=== PATIENT | male | born 1940 | race Caucasian/White ===

== ENCOUNTER 2022-01-05 01:13 | Day surgery (SDC) | payer MEDICARE, SELFPAY ==
[2021-12-23 13:45] VITALS: BMI 36.5
--- NOTE | 2022-01-05 08:54 | PM.HPGS ---
History of Present Illness History of Present Illness Consent: Risks, benefits, and alternatives have been discussed and questions answered. Patient agrees to proceed with procedure. Chief complaint: Hemorrhoids Narrative: Galdino Duggan Sr. is a 81 year old male here for symptomatic hemorrhoids, only used preparation h Review of Systems Constitutional: Constitutional: Denies headache(s) and Denies weakness Eyes: Eyes: Denies blurry vision ENT: Reports Normal hearing present, Denies headache(s) and Denies neck pain Cardiovascular: Cardiovascular: Denies chest pain and Denies dyspnea Respiratory: Respiratory: Denies dyspnea Gastrointestinal: Gastrointestinal: Reports no additional gastrointestinal complaints Genitourinary: Genitourinary: Denies dysuria Musculoskeletal: Musculoskeletal: Denies neck pain Integumentary/Breasts: Skin/Breast: Denies dry skin Neurologic: Reports Normal hearing present, Denies headache(s) and Denies weakness Psychiatric: Psychiatric: Denies anxiety Endocrine: Endocrine: Denies change in body appearance Hematologic/Lymphatic: Hematologic/Lymphatic: Denies easy bleeding Allergic/Immunologic: Allergic/Immunologic: Denies urticaria [facility] Past Medical History Medical History (Updated 01/05/22 @ 08:54 by Hector Garnica MD) GERD (gastroesophageal reflux disease) Hemorrhoid Obesity (BMI 30-39.9) Family History Family History Mother Hypertension Cerebrovascular accident Social History Social History (Updated 12/01/21 @ 08:37 by Patsy Gan CMA) Smoking status: Former smoker Alcohol intake: never Substance use: never Living arrangements: alone Spiritual care concerns: No Meds Home Medications and Allergies Home Medications Medication Instructions Recorded Confirmed Type amlodipine 5 mg tablet 5 mg PO DAILY 10/21/21 12/23/21 History escitalopram oxalate 10 mg tablet 10 mg PO DAILY 10/21/21 12/23/21 History esomeprazole magnesium 40 mg 40 mg PO DAILY 10/21/21 12/23/21 History capsule,delayed release metoprolol succinate 25 mg 25 mg PO DAILY 10/21/21 12/23/21 History tablet,extended release 24 hr pravastatin 10 mg tablet 10 mg PO DAILY 10/21/21 12/23/21 History Allergies Allergy/AdvReac Type Severity Reaction Status Date / Time No Known Allergies Allergy Verified 01/05/22 08:41 Exam Const: General: comfortable and no acute distress HENMT: General nose exam: Normal nares present Eyes: General: appearance normal, both eyes and all related structures Neck: Neck: no JVD Resp: Auscultation: clear to auscultation bilaterally Cardio: Rate: regular rate Rhythm: regular rhythm GI: Inspection: non-distended GI Palp: Yes Soft to palpation Skin: General skin exam: normal color Neuro: General: gait normal Speech: normal speech Extrem: General: normal to inspection Psych: Mental Status: mental status grossly normal Assessment and Plan Assessment and plan (1) Hemorrhoid: Code(s): K64.9 - Unspecified hemorrhoids Status: Acute Assessment and Plan: irc internal hemorrhoids
--- NOTE | 2022-01-05 08:57 | W.PM.PROC2 ---
Procedure Note - Detailed Date of Procedure 01/05/22 Pre-op Diagnosis Hemorrhoids Post-op Diagnosis Same Procedure Performed irc of internal hemorrhoids Surgeon Hector Garnica MD Description of Procedure I introduced anoscope and noted grade II internal hemorrhoids at 6 0'clock, then advanced IRC probe and hemorrhoids treated at 1.5 seconds x6, no complications
== END 2022-01-05 09:05 | disposition home or self-care (01) ==
PROVIDERS: PCP Internal Medicine; Visit Provider Internal Medicine Gastroenterology
PROC: (CPT 46930; principal; 2022-01-05 09:00)
DX: K64.8 Other hemorrhoids (principal); K21.9 Gastro-esophageal reflux disease without esophagitis; Z87.891 Personal history of nicotine dependence; K64.9 Unspecified hemorrhoids
CPT/HCPCS: 46930

== ENCOUNTER 2022-02-25 14:09 | Outpatient (CLI) | payer MEDICARE, BC, SELFPAY ==
--- NOTE | ~2022-02-25 | XR_ITS ---
EXAMINATION: XR hip LT min 2V INDICATION: Left hip pain TECHNIQUE: Two views of left hip are obtained. COMPARISON: None available FINDINGS: Bone alignment is normal. There is no fracture. There is mild osteoarthritis of the hip. Th e soft tissues are unremarkable. IMPRESSION: 1. Mild osteoarthritis of the hip. Reviewed, dictated and finalized at location F.
[2022-02-25 14:26] LABS: Basophils Absolute Auto 0.04 K/mm3 (0.00-0.10); Basophils Percent Auto 0.6 % (0.0-1.0); Eosinophils Absolute Auto 0.17 K/mm3 (0.02-0.50); Eosinophils Percent Auto 2.6 % (1.0-6.0); Hematocrit 49.9 % (37.0-46.0); Hemoglobin 16.3 g/dL (12.4-15.3); Immature Granulocyte Absolute 0.05 K/mm3 (0.00-0.00); Immature Granulocyte Percent A 0.8 % (0.0-0.0); Lymphocytes Absolute Auto 2.26 K/mm3 (1.10-4.50); Mean Corpuscular HGB Conc 32.7 g/dL (32.0-36.0); Mean Corpuscular Hemoglobin 29.8 pg (27.0-31.0); Mean Corpuscular Volume 91.2 fL (78.0-102.0); Mean Platelet Volume 9.2 fl (8.7-11.0); Monocytes Absolute Auto 0.64 K/mm3 (0.10-0.90); Monocytes Percent Auto 9.6 % (2.0-11.0); Neutrophils Absolute Auto 3.5 K/mm3 (1.7-7.2); Neutrophils Percent Auto 52.4 % (50.0-70.0); Platelet Count Result 212 K/mm3 (150-420); Red Blood Count 5.47 M/mm3 (4.70-6.10); White Blood Count 6.7 K/mm3 (4.8-10.8)
[2022-02-25 15:11] LABS: Alanine Aminotransferase 42 U/L (16-63); Albumin Level 3.7 g/dL (3.4-5.0); Alkaline Phosphatase 93 U/L (46-116); Anion Gap 6 mmol/L (8-16); Aspartate Amino Transferase 32 U/L (15-37); Bilirubin,Total 0.4 mg/dL (0.00-1.00); Blood Urea Nitrogen 13 mg/dL (7-18); CRP < 0.5 mg/dL (0.0-0.9); Calcium 8.7 mg/dL (8.5-10.1); Carbon Dioxide 30 mmol/L (21-32); Chloride 106 mmol/L (98-108); Estimated Glomerular Filt Rate 52; Glucose 96 mg/dL (70-99); Osmolality Calculated 294 mOsm/kg (285-295); Potassium 3.9 mmol/L (3.5-5.1); Sodium 142 mmol/L (136-145); Total Protein 7.3 g/dL (6.4-8.2); Uric Acid 5.8 mg/dL (3.5-7.2)
== END 2022-02-25 14:10 | disposition home or self-care (01) ==
LOC: CHSLAB 14:13
PROVIDERS: PCP Internal Medicine; Visit Provider Nurse Practitioner Family
DX: M25.552 Pain in left hip (principal); N18.9 Chronic kidney disease, unspecified
CPT/HCPCS: 36415; 73502; 80053; 84550; 85025; 86140

== ENCOUNTER 2022-03-08 09:33 | Outpatient (CLI) | payer MEDICARE, BC, SELFPAY ==
--- NOTE | ~2022-03-08 | CT_ITS ---
EXAMINATION: CT abdomen pelvis wo con DATE: 03/08/2022 09:57 INDICATION: Flank pain and low back pain TECHNIQUE: Computed tomography (CT) of the abdomen and pelvis was performed without intravenous contr ast. The dose-length product was 700.77 mGy-cm. Automated exposure control and iterative reconstructi on technique were employed. COMPARISON: None. FINDINGS: Lung bases are unremarkable. Heart size normal. There are multiple bilateral renal cysts. T here is an 8 cm right renal cyst. There are gallstones. No significant pleural or pericardial effusio n. Nonobstructive bowel pattern. The spleen, pancreas, adrenal glands are unremarkable. Mild atheroscler osis. No evidence for aneurysm. No lymphadenopathy. Severe lumbar spondylosis. Moderate osteoarthriti s of the hips. No free air or free fluid. There is a fat-containing right inguinal hernia. IMPRESSION: 1. No acute abdominal abnormality. 2: Cholelithiasis. 3: Bilateral renal cysts. Reviewed, dictated and finalized at location B.
== END 2022-03-08 09:34 | disposition home or self-care (01) ==
PROVIDERS: PCP Internal Medicine; Visit Provider Internal Medicine
DX: R10.9 Unspecified abdominal pain (principal); M54.50 Low back pain, unspecified
CPT/HCPCS: 74176

== ENCOUNTER 2022-03-09 14:29 | Outpatient (RCR) | payer MEDICARE, SELFPAY ==
--- NOTE | 2022-03-09 14:50 | PTOPEVAL1 ---
Assessment and note entered by JT File, PT Evaluation Information Assessment Status Evaluation Diagnosis acute L flank pain, sprained paraspinal mm Onset 02/22/22 Subjective Information patient reports he feels like he has a pinched nerve in his L side. he points to the pain in his L flank. he reports the pain is not all the time, and is not always severe, but at times is sharp when twisting. he reports at times bending, leaning, turning, and twisting cause him pain. he reports he has no symptoms down the legs. he reports the pain can increase with coughing sometimes. Reported Pain Level Pain Score 0: Self Report Assessment PT Clinical Summary mr. rainey is a 81 yo man who presents to skilled PT services for evaluation and treatment of L flank pain. he presents this date with signs and symptoms consistent with illiacus/illopsoas/ quadratus mm strain. he would do well to attend and participate in skilled PT to improve his objective/functional deficits and progress towards a return to his prior level quality of life. Plan of Care Interventions Electrical Stimulation,Gait Training,Manual Therapy,Neuro Re-education,Therapeutic Activities, Therapeutic Exercise PT Services Indicated Yes Treatment Frequency and 3x weekly for 12 visits Duration These treatments will address the objective and functional deficits as defined above. The patient will be advanced safely and appropriately in order for the patient to progress towards his/her prior level of function. Additional exercises will be introduced and as well as a comprehensive home exercise program upon discharge, if needed, ?to ensure carryover of functional gains achieved in the clinic. This treatment plan has been reviewed and agreement upon by the patient.
--- NOTE | 2022-03-26 09:20 | PTOPPROG ---
Assessment and note entered by JT File, PT Evaluation Information Assessment Status Progress Diagnosis acute L flank pain, sprained paraspinal mm Onset 02/22/22 Subjective Information patient reports he feels great this date. he reports he was a little sore and stiff yesterday after sitting on the ground and fishing. he reports he feels good this date. Assessment PT Clinical Summary mr. rainey presents to skilled PT services for his 9th skilled therapy visit. he presents this date with no pain in the lower back/L flank. he continues to present with core weakness and bialteral LE mm tightness. he has met nearly 50% of goals for skilled PT thus far. he would do well to continue therapy for his remaining 3 visits to improve his remaining objective/functional deficits and achieve all goals for skilled PT and return to prior level functional activities without limitations. Plan of Care Interventions Gait Training,Manual Therapy,Neuro Re-education, Therapeutic Activities,Therapeutic Exercise PT Services Indicated Yes Treatment Frequency and continue 3x weekly for 3 more visits Duration These treatments will address the objective and functional deficits as defined above. The patient will be advanced safely and appropriately in order for the patient to progress towards his/her prior level of function. Additional exercises will be introduced and as well as a comprehensive home exercise program upon discharge, if needed, ?to ensure carryover of functional gains achieved in the clinic. This treatment plan has been reviewed and agreement upon by the patient.
--- NOTE | 2022-04-02 07:39 | PTOPDC ---
Assessment and note entered by JT File, PT Evaluation Information Assessment Status Discharge Diagnosis acute L flank pain, sprained paraspinal mm Onset 02/22/22 Subjective Information patient reports he feels Great overall. he reports the therapy took away all the pain he came to therapy with. he reports he is still stiff in the mornings, but does loosen up with his exercises at home. Reported Pain Level Pain Score 0: Self Report Assessment PT Clinical Summary mr. rainey presents to skilled PT services for his 12th skilled therapy visit. he presents this date with no pain, improved strength, improved rom , and having met over 75% of goals. as of this date, he will DC skilled PT and continue with HEP independent at home. he presents with no deficits per the oswestry. Plan of Care Treatment Frequency and DC to independent HEP Duration
== END 2022-04-02 08:28 | disposition home or self-care (01) ==
LOC: CHSPT 14:29
PROVIDERS: PCP Internal Medicine; Visit Provider Internal Medicine
DX: R10.9 Unspecified abdominal pain (principal)
CPT/HCPCS: 97014; 97110; 97112; 97140; 97161; 97530; G0283

== ENCOUNTER 2024-02-16 04:50 | Day surgery (SDC) | payer MEDICARE, SELFPAY ==
[2024-02-07 09:36] VITALS: BMI 36.8
--- NOTE | 2024-02-16 13:27 | PM.HPGS ---
History of Present Illness History of Present Illness Consent: Risks, benefits, and alternatives have been discussed and questions answered. Patient agrees to proceed with procedure. Chief complaint: Hemorrhoids Narrative: Galdino Duggan Sr. is a 83 year old male here for [facility], last one 2021 helped but recently again with symptoms. Review of Systems Review of Systems: All systems reviewed & are unremarkable except as noted in HPI and below PMFSH Past Medical History Medical History GERD (gastroesophageal reflux disease) Hemorrhoid Obesity (BMI 30-39.9) Family History Family History Mother Hypertension Cerebrovascular accident Social History Social History Smoking status: Former smoker Smokeless tobacco user: chewing tobacco Alcohol intake: never Substance use: never Living arrangements: alone Spiritual care concerns: No Meds Home Medications and Allergies Home Medications Medication Instructions Recorded Confirmed Type amlodipine 5 mg tablet 5 mg PO DAILY 10/21/21 02/16/24 History escitalopram oxalate 10 mg tablet 10 mg PO DAILY 10/21/21 02/16/24 History esomeprazole magnesium 40 mg 40 mg PO DAILY 10/21/21 02/16/24 History capsule,delayed release (Nexium) metoprolol succinate 25 mg 25 mg PO DAILY 10/21/21 02/16/24 History tablet,extended release 24 hr pravastatin 10 mg tablet 10 mg PO DAILY 10/21/21 02/16/24 History hydrocortisone 2.5 % topical cream 1 applic RECTAL BID #30 grams 01/31/24 02/16/24 Rx with perineal applicator (Anusol-HC) Allergies Allergy/AdvReac Type Severity Reaction Status Date / Time No Known Allergies Allergy Verified 02/16/24 13:03 Exam Const: General: comfortable and no acute distress HENMT: Face/Nose/Sinus: Normal nares present Eyes: General: appearance normal, both eyes and all related structures Neck: Neck: no JVD Resp: Auscultation: clear to auscultation bilaterally Cardio: Rate: regular rate Rhythm: regular rhythm GI: Inspection: non-distended GI Palp: Yes Soft to palpation Skin: General skin exam: normal color Neuro: General: gait normal Speech: normal speech Extrem: General: normal to inspection Psych: Mental Status: mental status grossly normal Assessment and Plan Assessment and plan (1) Internal hemorrhoids: Code(s): K64.8 - Other hemorrhoids Status: Acute Assessment and Plan: irc
--- NOTE | 2024-02-16 14:11 | W.PM.PROC2 ---
Procedure Note - Detailed Date of Procedure 02/16/24 Pre-op Diagnosis Hemorrhoids Post-op Diagnosis Same Procedure Performed irc of internal hemorrhoids Surgeon Hector Garnica MD Anesthesia None Findings small size internal hemorrhoids Description of Procedure noted small size hemorrhoids, no bleeding, no lesions when used anoscope. Then introduced IRC probe and hemorrhoids treated at 1.5 seconds x6
== END 2024-02-16 13:32 | disposition home or self-care (01) ==
PROVIDERS: PCP Internal Medicine; Visit Provider Internal Medicine Gastroenterology
PROC: (CPT 46930; principal; 2024-02-16 13:30)
DX: K64.8 Other hemorrhoids (principal); K21.9 Gastro-esophageal reflux disease without esophagitis; F17.220 Nicotine dependence, chewing tobacco, uncomplicated; Z82.49 Family history of ischemic heart disease and other diseases of the circulatory system
CPT/HCPCS: 46930

== ENCOUNTER 2024-06-15 09:14 | Outpatient (CLI) | payer MEDICARE, SELFPAY ==
--- NOTE | ~2024-06-15 | US_ITS ---
US renal BI 06/15/2024 09:46 Procedure: Realtime transabdominal ultrasound of the kidneys and bladder. Indication: Kidney disease stage II Comparison: CT dated 03/08/2022 Findings: There are multiple bilateral renal cysts, largest in the right kidney measuring 9 cm in lar gest on the left measuring 3.8 cm. No solid masses or hydronephrosis. Right kidney measures 10.8 cm. Left kidney measures 12.1 cm. Bladder within normal limits. Impression: 1: Bilateral renal cysts. Reviewed, dictated and finalized at location A. FRAMER Impression: 1: Bilateral renal cysts.
--- OUTSIDE RECORDS SUMMARY | 2024-06-15 09:32 | XMS_ITS | Continuity of Care Document ---
Author Organization [facility] Address [address] [place] [address] Phone Care Team Providers Care Press Cutter Name Role Phone Jose A OD, Lela [...] Diagnoses Date Provider Providers Copied on Encounter [facility], [address], [place], [place], [id number], [place] tel:[phone] [address] [place] No Information Jose A OD Lela. [address], [place], [place], [address], [place]. tel:[phone] Family History Family Member Type Diagnosis Age At Onset No Information Payers Payer name Insurance type Covered libertarian ID Authoriza tion(s) No Information Social History Type Description Quantity Date Captured Comments Alcohol Use Details No Caffeine Use Details 2 cups per day Tobacco Use Status No Information Smoking Status No Information Sex Male Chief Complaint And Reason For Visit No Information Reason For Referral Reason For Referral No Information Plan Of Treatment Date Type Action Status Appointment Galdino Duggan BOOKED History Of Present Illness Encounter Date Complaint History Of Prese nt Illness No Information Functional Status Date Functional Assessmen t No Information Instructions Date Instruction Additional Infor mation No Information Assessments Type Assessment Date No Information Patient Care Teams Name Effective Dates (start - stop) Status Members No Information
--- OUTSIDE RECORDS SUMMARY | 2024-06-15 09:32 | XMS_ITS | Clinical Summary ---
Author Organization [facility] Address [address] [place] [address]. [place], [place] [address] [place] [address] Care Team Providers Care Safe And Vault Service Mechanic Name Role Phone Jake Pond MD Primary Care Provider [phone] Teo Reeder MD Unavailable Unavailab le Allergies No known active allergies Medications esomeprazole (NEXIUM) 40 MG packet Take 40 mg by mouth every morning before breakfast. Active escitalopram 10 MG tablet Take 10 mg by mouth daily. Active amlodipine 5 MG tablet Take 5 mg by mouth daily. Active metoprolol succinate 50 MG 24 hr tablet Take 25 mg by mouth. Active aspirin EC (ASPIRIN) 81 MG EC tablet Take 81 mg by mouth daily. Active Active Problems Problem Noted Date Diagnosed Date Essential (primary) hypertension 09/08/2016 Hyperlipidemia, mixed 09/08/2016 Bilateral carotid artery disease 09/08/2016 Resolved Problems Problem Noted Date Diagnosed Date Resolved Date Shortness of breath 09/08/2016 09/09/19 17 Social History Tobacco Use Types Packs/Day Years Used Date Smoking Tobacco: Former Sex and Gender Information Value Date Recorded Sex Assigned at Not on file Legal Sex Male 1:13 PM CDT Gender Identity Not on file Sexual Orientation Not on file Occupation Industry Job Start Date Job End Date retired Not on file Not on file Not on file Last Filed Vital Signs Vital Sign Reading Time Taken Comments Blood Pressure 134/88 09/09/2016 10:29 AM CDT Pulse 66 09/09/2016 10:29 AM CDT Temperature - - Respiratory Rate 16 09/09/2016 10:29 AM CDT Oxygen Saturation 98% 09/09/2016 10:29 AM CDT Inhaled Oxygen Concentration - - Weight 118.8 kg (262 lb) 09/09/2016 10:29 AM CDT Height 172.7 cm (5' 8 ) 09/09/2016 10:29 AM CDT Body Mass Index 39.84 09/09/2016 10:29 AM CDT Plan of Treatment Health Maintenance Due Date Last Done Comments DTaP, Tdap and Td Vaccines ( 1 - Tdap) 1961 Zoster Vaccines (1 of 2) 1992 Annual Medicare Wellness Visit 11/17/2007 Pneumococcal Vaccine: 65+ Ye ars (1 of 1 - PCV) 11/17/2007 RSV Immunization or 60+ Years (1 - 1-dose 75+ series) 2017 COVID-19 Vaccine (1 - 2023-2 5 season) 2024 Influenza Adult (#1) 2024 Meningococcal B Vaccine Aged Out No l onger eligible based on patient's age to complete this topic Meningococcal Vaccine Aged Out No pete imani eligible based on patient's age to complete this topic RSV Immunizations Under 20 Months Aged Out No longer eligible based on patient's age to complete this topic Insurance MEDICARE Care Teams Safe And Vault Service Mechanic Relationship Specialty Start Date End Date Jake Pond MD [address] [place] [address] PCP - General INTERNAL MEDICINE 08/17/16 Teo Reeder MD [address] [place] [address] CARDIOVASCULAR DISEASE 08/17/16
--- OUTSIDE RECORDS SUMMARY | 2024-06-15 09:32 | XMS_ITS | Encounter Summary ---
Author Organization [facility] Address [address] [place] [address]. [place], [place] [id number] [place] [address] Care Team Providers Care Plate Glass Installer Name Role Phone Jake Pond MD Primary Care Provider [phone] Teo Reeder MD Unavailable Unavailab le Encounter Details Date Type Department Care Team (Late st Contact Info) Description 09/07/2016 Abstract [facility] [address] [place] [address] Teo Reeder MD Social History Tobacco Use Types Packs/Day Years Used Date Smoking Tobacco: Former Sex and Gender Information Value Date Recorded Sex Assigned at Not on file Legal Sex Male 1:13 PM CDT Gender Identity Not on file Sexual Orientation Not on file Occupation Industry Job Start Date Job End Date retired Not on file Not on file Not on file documented as of this encounter Plan of Treatment Not on file documented as of this encounter Visit Diagnoses Not on filedocumented in this encounter Care Teams Plate Glass Installer Relationship Specialty Start Date End Date Jake Pond MD [address] [place] [address] PCP - General INTERNAL MEDICINE 08/17/16 Teo Reeder MD [address] [place] [address] CARDIOVASCULAR DISEASE 08/17/16 documented as of this encounter
== END 2024-06-15 09:15 | disposition home or self-care (01) ==
LOC: CHSIMG 09:15
PROVIDERS: PCP Internal Medicine; Visit Provider Internal Medicine
DX: N18.2 Chronic kidney disease, stage 2 (mild) (principal); N28.1 Cyst of kidney, acquired
CPT/HCPCS: 76775

== ENCOUNTER 2024-08-10 09:10 | Emergency (ER) | payer MEDICARE, SELFPAY ==
[2024-08-10] VITALS (34 sets, daily range): BP systolic 92–158; BP diastolic 56–77; PULSE 79–95; RESP 12–26; TEMP 36.6; O2SAT 90–100
--- NOTE | ~2024-08-10 | XR_ITS ---
EXAMINATION: XR chest 1V portable DATE: 08/10/2024 09:43 INDICATION: Left lower extremity weakness. TECHNIQUE: A single frontal view of the chest was obtained. COMPARISON: Chest 2 views 09/05/2006, CT abdomen and pelvis 03/08/2022 FINDINGS: There is no pneumonia, pleural effusion, or pneumothorax. The heart size is normal. IMPRESSION: 1. No acute cardiopulmonary disease. Reviewed, dictated and finalized at location A.
--- NOTE | ~2024-08-10 | CT_ITS ---
EXAMINATION: CT brain wo con DATE: 08/10/2024 09:42 INDICATION: Left lower extremity weakness. TECHNIQUE: Computed tomography (CT) of the head was performed without intravenous contrast. The mA wa s adjusted according to patient size. Iterative reconstruction technique was employed. The dose-lengt h product was 605.33 mGy-cm. COMPARISON: None FINDINGS: There are scattered areas of low attenuation in the cerebral white matter, which is within normal limits for the patient's age. There is no intracranial hemorrhage, acute infarction, or abnorm al intracranial mass lesion. The ventricles are normal in size. The paranasal sinuses are clear. Ther e are likely changes of ocular lens replacement surgeries. The mastoid air cells are normal. IMPRESSION: 1. Normal aging brain. Reviewed, dictated and finalized at location A. IMPRESSION: 1. Normal aging brain.
--- NOTE | ~2024-08-10 | CT_ITS ---
EXAMINATION: CTA BRAIN/CAROTID DATE: 08/10/2024 11:23 INDICATION: Stroke with left lower limb weakness TECHNIQUE: Computed tomographic angiography (CTA) of the head and neck was performed with 100 mL Omni paque-350 intravenous contrast. Multiplanar reconstructions and maximum intensity projection 3D-recon structions of the carotid arteries and of the intracranial arteries were created by the technologist on a separate workstation. Automated exposure control and iterative reconstruction technique were emp loyed.The dose-length product was 1117.04 mGy-cm. COMPARISON: Head CT dated 08/10/2024 FINDINGS: Carotid arteries: Visualized aortic arch and great vessels arising from the arch are normal in caliber with no hemodyna mically significant stenosis or dissection. Cervical portion of the bilateral vertebral arteries are codominant also without hematoma significant stenosis or dissection. There is no evident atherosclero tic plaque with 0% stenosis of the right carotid bulb relative to normal distal artery lumen diameter (NASCET criteria). There is normal atherosclerotic plaque also with 0% stenosis of the left carotid bulb relative to normal distal artery lumen diameter. Cervical soft tissues are unremarkable. This la st apices of lungs are clear. Moderate lower cervical spondylosis. Intracranial arteries Bilateral vertebral arteries are codominant. Atherosclerosis without hemodynamically significant sten osis on the left vertebral artery and at the bilateral carotid siphons. There is no hemodynamically s ignificant stenosis in the vertebral, basilar and internal carotid arteries. There are no aneurysms i dentified. Both A1 and P1 segments are patent. There is also a patent intercommunicating artery. Cer ebral arterial arborization appears symmetric. No abnormally enhancing brain lesions. IMPRESSION: 1. 0% stenosis of the right and left carotid bulbs relative to normal distal artery lumen diameter (N ASCET criteria). 2. Atherosclerotic plaque without hemodynamically significant stenosis at the left vertebral artery a nd bilateral carotid siphons. No hematoma significant stenosis, aneurysm or thrombosis. Reviewed, dictated and finalized at location B. IMPRESSION: 1. 0% stenosis of the right and left carotid bulbs relative to normal distal ar wes lumen diameter (NASCET criteria). 2. Atherosclerotic plaque without hemodynamically significant stenosis at the l eft vertebral artery and bilateral carotid siphons. No hematoma significant johnnie nosis, aneurysm or thrombosis.
--- NOTE | 2024-08-10 09:15 | ED.LOWEXIN ---
HPI - Extremity Injury (Lower) General Chief Complaint: Weakness Stated Complaint: left leg weakness Time Seen by Provider: 08/10/24 09:15 Source: patient Mode of arrival: ambulatory Limitations: no limitations History of Present Illness HPI Narrative: patient is an 83-year-old male with left lower extremity weakness starting at 7:00 a.m. his last known well. He went to take a bath this morning it was normal and then he got out of the bath at 7:00 a.m. and he was having left lower extremity weakness. He is unable to take full steps without his leg giving out on him at that time. He is still having the same complaint. No other neurological changes. We are now at 2-1/2 hours and we will get the CT scan of the head stat. NIH score is 1. Fast exam is negative. GCS is 15. No injury involved. Patient took aspirin 81 mg this morning. complaint: other ( Left lower extremity weakness) Onset (ago): hour(s) ( 2-1/2 hours (last known well 7:00 a.m.)) Type of Injury: other ( no injury) Place: home Severity: moderate Severity scale (1-10): 4 Relieving factors: nothing Exacerbating factors: nothing Context: fall ( patient fell multiple times this morning due to the weakness of left lower extremity) Associated symptoms: other ( no numbness or tingling of the left lower extremity; no lower back pain; no injuries) Other symptoms: none Treatments prior to arrival: other ( patient takes aspirin daily) Related Data Home Medications ?Medication ?Instructions ?Recorded ?Confirmed ?Last Taken ?Type amlodipine 5 mg tablet 5 mg PO DAILY 10/21/21 02/16/24 02/16/24 08:00 History escitalopram oxalate 10 mg tablet 10 mg PO DAILY 10/21/21 02/16/24 02/16/24 08:00 History esomeprazole magnesium 40 mg 40 mg PO DAILY 10/21/21 02/16/24 02/16/24 08:00 History capsule,delayed release (Nexium) metoprolol succinate 25 mg 25 mg PO DAILY 10/21/21 02/16/24 02/16/24 08:00 History tablet,extended release 24 hr pravastatin 10 mg tablet 10 mg PO DAILY 10/21/21 02/16/24 02/16/24 08:00 History aspirin 81 mg chewable tablet 81 mg PO DAILY 08/10/24 Unknown History (Stephanie Chewable Low Dose Aspirin) Allergies Allergy/AdvReac Type Severity Reaction Status Date / Time No Known Allergies Allergy Verified 08/10/24 09:58 Review of Systems Review of Systems: All systems reviewed & are unremarkable except as noted in HPI and below Constitutional: Constitutional: Reports as per HPI and Reports no additional constitutional complaints Eyes: Eyes: Reports as per HPI and Reports no additional eye complaints ENT: Reports system reviewed and no additional complaints, except as documented Cardiovascular: Cardiovascular: Reports no additional cardiovascular complaints Respiratory: Respiratory: Reports no additional respiratory complaints Gastrointestinal: Gastrointestinal: Reports no additional gastrointestinal complaints Genitourinary: Genitourinary: Reports no additional male genitourinary complaints Musculoskeletal: Musculoskeletal: Reports no additional musculoskeletal complaints Integumentary/Breasts: Skin/Breast: Reports system reviewed and no additional complaints, except as docu Neurologic: Reports system reviewed and no additional complaints, except as documented Psychiatric: Psychiatric: Reports no additional psychiatric complaints Endocrine: Endocrine: Reports no additional endocrine complaints Hematologic/Lymphatic: Hematologic/Lymphatic: Reports no additional hematologic/lymphatic complaints Allergic/Immunologic: Allergic/Immunologic: Reports no additional allergic/immunologic complaints [facility] Past Medical History Medical History Hemorrhoid GERD (gastroesophageal reflux disease) Obesity (BMI 30-39.9) Family History Family History Mother Hypertension Cerebrovascular accident Social History Social History Smoking status: Former smoker Smokeless tobacco user: chewing tobacco Alcohol intake: never Substance use: never Living arrangements: alone Spiritual care concerns: No Exam Const: General: healthy appearing Nutritional Appearance: well nourished Orientation/consciousness: patient oriented x3 Limitations: no limitations HENMT: Head: normal to inspection Ears: external ears normal Face/Nose/Sinus: Normal external nose present Eyes: Conjunctivae: conjunctivae normal Pupils: Equal, round and reactive pupils present EOM: EOMs intact bilaterally Neck: Neck: normal visual inspection Chest: Chest palpation & inspection: normal inspection of the chest Resp: Effort & Inspection: normal respiratory effort and not labored Auscultation: clear to auscultation bilaterally and no crackles Cardio: Rate: regular rate Rhythm: regular rhythm Heart sounds: no murmurs GI: Inspection: non-distended GI Palp: Yes Soft to palpation and No Tenderness to palpation present (GI) Auscultation: normal bowel sounds : General: Yes bladder normal to palpation Back/Spine/Pelvis: Back: no CVA tenderness Skin: General skin exam: normal color Rashes: no rashes Wounds: no wounds Neuro: General: patient oriented x3, moves all extremities, no meningeal signs, No no focal motor deficits ( left lower extremity has weakness with walking) and CN's II-XI intact bilaterally Cranial nerves: Yes Nystagmus not present Speech: normal speech Gait exam (Neuro): gait abnormal Other: difficulty walking secondary to weakness of left lower extremity; NIH score is 1 Extrem: General: normal to inspection Psych: Mental Status: mental status grossly normal Affect: normal affect Attitude: cooperative Course Vital Signs Vital signs: Vital Signs Temperature 36.6 C 08/10/24 09:14 Pulse Rate 94 08/10/24 09:14 Respiratory Rate 20 08/10/24 09:14 Blood Pressure 144/66 H 08/10/24 09:14 Pulse Oximetry 94 08/10/24 09:14 Oxygen Delivery Room Air 08/10/24 09:14 Temperature 36.6 C 08/10/24 09:14 Pulse Rate 80 08/10/24 11:46 Respiratory Rate 12 08/10/24 11:46 Blood Pressure 129/67 08/10/24 11:31 Pulse Oximetry 96 08/10/24 11:46 Oxygen Delivery Room Air 08/10/24 11:31 MDM - Extremity Injury (Lower) MDM Narrative Medical decision making narrative: patient is an 83-year-old male with a left lower extremity weakness that started at 7:00 a.m. this morning with last known well. He is having continued left lower extremity weakness and we will do CVA workup at this time. patient had an NIH score of 1 due to left lower extremity weakness and unable to walk and I talked to Neurology at [facility] and we had said that doing TNKase could be appropriate if he could not walk. I brought the patient off the bed again for repeat evaluation and his NIH score was 0. Patient was able to cross his left leg as well as walk again at this time. This was a TIA. He will transfer without getting throbolytics. He took his aspirin this morning Lab Data Attestation: I reviewed the patient's lab results. 08/10/24 09:38 08/10/24 09:38 Labs: Lab Results 08/10/24 Range/Units 09:38 WBC 12.2 H (4.8-10.8) K/mm3 RBC 4.73 (4.70-6.10) M/mm3 Hgb 14.2 (12.4-15.3) g/dL Hct 43.1 (37.0-46.0) % MCV 91.1 (78.0-102.0) fL MCH 30.0 (27.0-31.0) pg MCHC 32.9 (32-36) g/dL RDW 13.6 (11.6-14.4) % Plt Count 203 (150-420) K/mm3 MPV 9.5 (8.7-11.0) fl Immature Gran % (Auto) 0.2 H (0.0-0.0) % Neut % (Auto) 78.9 H (50.0-70.0) % Lymph % (Auto) 7.2 L (18.0-42.0) % Mcleod % (Auto) 13.3 H (2.0-11.0) % Eos % (Auto) 0.2 L (1.0-6.0) % Baso % (Auto) 0.2 (0.0-1.0) % Lymph # (Auto) 0.88 L (1.10-4.50) K/mm3 Mcleod # (Auto) 1.63 H (0.10-0.90) K/mm3 Eos # (Auto) 0.03 (0.02-0.50) K/mm3 Baso # (Auto) 0.03 (0.00-0.10) K/mm3 Abs Immat Gran (auto) 0.03 H (0.00-0.00) K/mm3 Absolute Neuts (auto) 9.63 H (1.70-7.20) K/mm3 Absolute Nucleated RBC 0.00 (0.00-0.00) K/mm3 Nucleated RBC % 0.0 (0-0.0) % PT 11.0 (9.50-12.1) Seconds INR 1.0 APTT 28.6 (23.9-30.70) Sec Sodium 132 L (137-145) mmol/L Potassium 3.5 (3.4-5.0) mmol/L Chloride 100 (98-107) mmol/L Carbon Dioxide 22 (22-30) mmol/L Anion Gap 10 (4-12) mmol/L BUN 19 (9-20) mg/dL Creatinine 1.76 H (0.7-1.3) mg/dL Estim Creat Clear Calc 36 ml/min Estimated GFR 37 L (59 - ) Glucose 134 H (65-110) mg/dL Calculated Osmolality 278 L (285-295) mOsm/kg Calcium 8.7 (8.4-10.2) mg/dL Magnesium 1.8 (1.6-2.3) mg/dL Total Bilirubin 0.8 (0.2-1.3) mg/dL AST 36 (17-59) U/L ALT 24 (6-50) U/L Alkaline Phosphatase 89 (38-126) U/L Total Creatine Kinase 193 H (55-170) U/L Troponin I < 4.000 H* (0.000-0.034) ng/mL Total Protein 7.0 (6.3-8.2) g/dL Albumin 3.7 (3.5-5.1) g/dL TSH 2.230 (0.465-4.680) uIU/mL Imaging Data Attestation: I personally reviewed and interpreted this imaging study as follows: Radiologist's impression: CT scan of the head was negative for acute process chest x-ray is negative for acute process CTA of the head and neck shows IMPRESSION: 1. 0% stenosis of the right and left carotid bulbs relative to normal distal artery lumen diameter (NASCET criteria). 2. Atherosclerotic plaque without hemodynamically significant stenosis at the left vertebral artery and bilateral carotid siphons. No hematoma significant stenosis, aneurysm or thrombosis. ECG Data EKG #1: Attestation: I personally reviewed and interpreted this ECG as follows: ECG completion date: 08/10/24 ECG completion time: 09:48 EKG Interpretation: normal rate, sinus rhythm, no ectopy, non-specific ST changes, widened QRS, RBBB, normal QT, prolonged QT and left axis Discharge Plan Discharge Clinical Impression: Brain TIA, RACHANA (acute kidney injury) Patient Disposition: Acute Care Hospital Condition: Serious Patient Language: Kazakh Prescriptions: No Action aspirin [Stephanie Chewable Aspirin] 81 mg tablet,chewable 81 mg PO DAILY amlodipine 5 mg tablet 5 mg PO DAILY escitalopram oxalate 10 mg tablet 10 mg PO DAILY esomeprazole magnesium [Nexium] 40 mg capsule,delayed release(DR/EC) 40 mg PO DAILY pravastatin 10 mg tablet 10 mg PO DAILY metoprolol succinate 25 mg tablet extended release 24 hr 25 mg PO DAILY Follow-up/Referrals: Jake Pond MD [Primary Care Provider] - Time of Disposition: 12:10
--- NOTE | 2024-08-10 09:29 | ECG_ITS ---
Test Date: 2024-08-10 09:46:50 Measurements Intervals [place] Rate: 85 P: 83 LA: 269 QRS: -15 QRSD: 148 T: 7 QT: 406 QTc: 485 Interpretive Statements SINUS RHYTHM WITH FIRST DEGREE AV BLOCK RIGHT BUNDLE BRANCH BLOCK No previous ECG available for comparison Electronically Signed On 08-10-2024 10:35:23 CDT by Pura Gamez M.D.
--- OUTSIDE RECORDS SUMMARY | 2024-08-10 09:39 | XMS_ITS | Encounter Summary ---
Author Organization [facility] Address [facility] [place] [address] Care Team Providers Care Tongue Stitcher Name Role Phone Jake Pond MD Primary Care Provider [phone] Teo Reeder MD Unavailable Unavailab le Encounter Details Date Type Department Care Team (Late st Contact Info) Description 09/07/2016 Abstract [facility] [address] [place] [id number] Teo Reeder MD Social History Tobacco Use [...] on filedocumented in this encounter Care Teams Tongue Stitcher Relationship Specialty Start Date End Date Jake Pond MD [address] [place] [address] PCP - General INTERNAL MEDICINE 08/17/16 Teo Reeder MD [address] [place] [address] CARDIOVASCULAR DISEASE 08/17/16 documented as of this encounter
--- OUTSIDE RECORDS SUMMARY | 2024-08-10 09:39 | XMS_ITS | Clinical Summary ---
Author Organization [facility] Address [facility] [place] [address] Care Team Providers Care Information Systems Security Developer Name Role Phone Jake Pond MD Primary Care Provider [phone] Teo Reeder MD Unavailable Unavailab le Allergies [...] - 1-dose 75+ series) 2017 COVID-19 Vaccine ( - 2023-2 5 season) 2024 Influenza Adult [...] complete this topic Insurance MEDICARE Care Teams Information Systems Security Developer Relationship Specialty Start Date End Date Jake Pond MD [address] [place] [address] PCP - General INTERNAL MEDICINE 08/17/16 Teo Reeder MD [address] [place] [address] CARDIOVASCULAR DISEASE 08/17/16
--- OUTSIDE RECORDS SUMMARY | 2024-08-10 09:39 | XMS_ITS | Continuity of Care Document ---
Author Organization [facility] Address [address] [place] [address] Phone Care Team Providers Care Billing Spec Name Role Phone Jose A OD, Lela [...] Diagnoses Date Provider Providers Copied on Encounter [facility], [address], [place], [place], [id number], [place] tel:[phone] [place] No Information Jose A OD Lela. [address], [place], [place], [id number], [place]. tel:[phone] Family History Family Member Type Diagnosis Age [...]
[2024-08-10 09:44] LABS: Basophils Absolute Auto 0.03 K/mm3 (0.00-0.10); Basophils Percent Auto 0.2 % (0.0-1.0); Eosinophils Absolute Auto 0.03 K/mm3 (0.02-0.50); Eosinophils Percent Auto 0.2 % (1.0-6.0); Hematocrit 43.1 % (37.0-46.0); Hemoglobin 14.2 g/dL (12.4-15.3); Immature Granulocyte Absolute 0.03 K/mm3 (0.00-0.00); Immature Granulocyte Percent A 0.2 % (0.0-0.0); Lymphocytes Absolute Auto 0.88 K/mm3 (1.10-4.50); Lymphocytes Percent Auto 7.2 % (18.0-42.0); Mean Corpuscular HGB Conc 32.9 g/dL (32-36); Mean Corpuscular Volume 91.1 fL (78.0-102.0); Mean Platelet Volume 9.5 fl (8.7-11.0); Monocytes Absolute Auto 1.63 K/mm3 (0.10-0.90); Monocytes Percent Auto 13.3 % (2.0-11.0); Neutrophils Absolute Auto 9.63 K/mm3 (1.70-7.20); Neutrophils Percent Auto 78.9 % (50.0-70.0); Platelet Count Result 203 K/mm3 (150-420); Red Blood Count 4.73 M/mm3 (4.70-6.10); Red Cell Distribution Width 13.6 % (11.6-14.4); White Blood Count 12.2 K/mm3 (4.8-10.8)
[2024-08-10 10:00] LABS: Partial Thromboplastin Time 28.6 Sec (23.9-30.70)
--- OUTSIDE RECORDS SUMMARY | 2024-08-10 10:14 | XMS_ITS | Encounter Summary ---
Author Organization [facility] Address [facility] [place] [address] Care Team Providers Care Roulette Dealer Name Role Phone Jake Pond MD Primary Care Provider [phone] Teo Reeder MD Unavailable Unavailab le Encounter Details Date Type Department Care Team (Late st Contact Info) Description 09/07/2016 Abstract [facility] [address] [place] [phone] Teo Reeder MD Social History Tobacco Use [...] on filedocumented in this encounter Care Teams Roulette Dealer Relationship Specialty Start Date End Date Jake Pond MD [address] [place] [address] PCP - General INTERNAL MEDICINE 08/17/16 Teo Reeder MD [address] [place] [address] CARDIOVASCULAR DISEASE 08/17/16 documented as of this encounter
--- OUTSIDE RECORDS SUMMARY | 2024-08-10 10:14 | XMS_ITS | Clinical Summary ---
Author Organization [facility] Address [facility] [place] [address] Care Team Providers Care Aerial Erector Name Role Phone Jake Pond MD Primary Care Provider [phone] Teo Reeder MD Unavailable Unavailab le Allergies [...] complete this topic Insurance MEDICARE Care Teams Aerial Erector Relationship Specialty Start Date End Date Jake Pond MD [address] [place] [address] PCP - General INTERNAL MEDICINE 08/17/16 Teo Reeder MD [address] [place] [address] CARDIOVASCULAR DISEASE 08/17/16
--- OUTSIDE RECORDS SUMMARY | 2024-08-10 10:14 | XMS_ITS | Continuity of Care Document ---
Author Organization [facility] Address [address] [place] [address] Phone Care Team Providers Care Lehr Cutter Name Role Phone Jose A OD, [...] Diagnoses Date Provider Providers Copied on Encounter [facility], [address], [place], [place], [id number], [place] tel:[phone] [place] No Information Jose A OD Lela. [address], [place], [place], [id number], [place]. tel:[phone] Family History Family Member Type Diagnosis Age At Onset No Information Payers Payer name Insurance type Covered alliance party ID Authoriza tion(s) No Information Social [...]
[2024-08-10 10:32] LABS: Alanine Aminotransferase 24 U/L (6-50); Albumin Level 3.7 g/dL (3.5-5.1); Alkaline Phosphatase 89 U/L (38-126); Anion Gap 10 mmol/L (4-12); Aspartate Amino Transferase 36 U/L (17-59); Bilirubin,Total 0.8 mg/dL (0.2-1.3); Blood Urea Nitrogen 19 mg/dL (9-20); Calcium 8.7 mg/dL (8.4-10.2); Carbon Dioxide 22 mmol/L (22-30); Chloride 100 mmol/L (98-107); Creatine Kinase 193 U/L (55-170); Estimated CRCL calculation 36 ml/min; Estimated Glomerular Filt Rate 37; Glucose 134 mg/dL (65-110); Magnesium 1.8 mg/dL (1.6-2.3); Osmolality Calculated 278 mOsm/kg (285-295); Potassium 3.5 mmol/L (3.4-5.0); Sodium 132 mmol/L (137-145)
[2024-08-10 10:56] LABS: Troponin I < 4.000 ng/mL (0.000-0.034)
[2024-08-10] MEDS: SODIUM CHLORIDE 0.9% IV 1,000 ML 999 ML IV CONT (12:11)
--- NOTE | 2024-08-10 12:14 | PC.NURSE ---
1115 pt on walk test and was able to walk at this time pt NIH 0 at this time
[2024-08-10 13:34] LABS: Add Urine Microscopic? YES; Appearance Urine Clear (Clear); Bilirubin Urine Negative (Negative); Blood Urine 1+ (Negative); Color Urine Light Yellow (Yellow); Glucose Urine UA Negative (Negative); Ketones Urine Trace (Negative); Leukocyte Esterase Ur Negative LEU/UL (Negative); Nitrate Urine Negative (Negative); Protein Urine Negative (Negative); Specific Grav Ur <= 1.005 (1.010-1.020); Urobilinogen Urine 0.2 mg/dL (0.2-1.0)
[2024-08-10 13:49] LABS: Bacteria Urine Trace /hpf; RBC Urine 0-2 /hpf (0-2); Squamous Epithelial Cell Urine Rare /hpf (Few); WBC Urine 0-3 /hpf (0-3)
== END 2024-08-10 14:13 | disposition short-term general hospital (02) ==
PROVIDERS: Emergency Provider Emergency Medicine; PCP Internal Medicine
DX: G45.9 Transient cerebral ischemic attack, unspecified (principal); N17.9 Acute kidney failure, unspecified; Z79.82 Long term (current) use of aspirin; Z87.891 Personal history of nicotine dependence
CPT/HCPCS: 36415; 70450; 70496; 70498; 71045; 80053; 81001; 82550; 83735; 84443; 84484; 85025; 85610; 85730; 93005; 96360; 99285; J7030; Q9967

== ENCOUNTER 2024-09-16 06:24 | Emergency (ER) | payer MEDICARE, SELFPAY ==
[2024-09-16] VITALS (21 sets, daily range): BP systolic 114–160; BP diastolic 51–90; PULSE 56–70; RESP 14–19; TEMP 36.4; O2SAT 93–97
--- NOTE | ~2024-09-16 | XR_ITS ---
XR chest 1V portable Ordering provider: Kyle Armendariz MD History: 83 years Male with . arrhythmia/ palpitations . Comparison: August 10, 2024 FINDINGS: MEDIASTINUM: The cardiac silhouette is slightly enlarged. Device is projected over the left hemithora x. Congestive sejal. LUNGS: No pneumothorax. Opacification and the left lung base is seen suggestive of atelectasis versus pneumonia. Pleural effusion cannot be excluded. Minimal opacification in the right lung base suggest obed of atelectasis versus pneumonia. Underlying pulmonary edema is not excluded. OTHER: No free air under the diaphragm. IMPRESSION: Cardiomegaly with congestive sejal and bilateral interstitial thickening which may indicate pulmonary edema. Bibasilar opacification suggestive of atelectasis versus pneumonia. Reviewed, dictated and finalized at location A. IMPRESSION: Cardiomegaly with congestive sejal and bilateral interstitial thickening which m ay indicate pulmonary edema. Bibasilar opacification suggestive of atelectasis versus pneumonia.
--- OUTSIDE RECORDS SUMMARY | 2024-09-16 06:26 | XMS_ITS | Encounter Summary ---
Author Organization [facility] Address [facility] access [facility] [place] [address] Care Team Providers Care National Van Owner Operator Name Role Phone Jake Pond MD Primary Care Provider [phone] Teo Reeder MD Unavailable Unavailab le Reason for Visit * Reason Onset Date Comments Holter Monitor 09/11/2024 * Imaging (Routine) - Closed Specialty Diagnoses / Procedures Referred By Contac t Referred To Contact Diagnoses TIA (transient ischemic attack) Procedures CLINIC - OUTPATIENT EVENT RECORDER (ECG) UP TO 30 DAYS COMPLETE (Holter) Jenn Candelaria NP [address] [address] Phone: tel: fax: Jenn Candelaria NP [address] [address] Phone: tel: fax: Referral ID Status Reason Start Date Expiration Date Visits Re quested Visits Authorized [id number] Closed 08/31/2024 08/31/2025 1 1 Encounter Details Date Type Department Care Team (Late st Contact Info) Description 09/11/2024 12:00 PM CDT Telephone [facility] eld [address] [place] [address] Jenn Candelaria NP [address] [address] Holter Monitor Social History Tobacco Use Types Packs/Day Years Used Date Smoking Tobacco: Former [facility] Utilities Answer Date Recorded In the past 12 months has th e [facility], oil, or water [employer] threatened to shut off services in your home? Patient declined 08/10/2024 Humiliation, Afraid, Rape, and Kick questionnair e Answer Date Recorded Within the last year, have y ou been afraid of your partner or ex-partner? Patient declined 08/10/2024 Within the last year, have y ou been humiliated or emotionally abused in other ways by your partner or ex-partner? Patient declined 08/10/2024 Within the last year, have y ou been kicked, hit, slapped, or otherwise physically hurt by your partner or ex-partner? Patient declined 08/10/2024 Within the last year, have y ou been raped or forced to have any kind of sexual activity by your partner or ex-partner? Patient declined 08/10/2024 Overall Financial Resource Strain (CARDIA) Answe r Date Recorded How hard is it for you to pa y for the very basics like food, housing, medical care, and heating? Patient declined 08/10/2024 Hunger Vital Sign Answer Date Recorded Within the past 12 months, y ou worried that your food would run out before you got the money to buy more. Patient declined Within the past 12 months, t he food you bought just didn't last and you didn't have money to get more. Patient declined PRAPARE - Transportation Answer Date Re corded In the past 12 months, has l ack of transportation kept you from medical appointments or from getting medications? Patient declined 08/10/2024 In the past 12 months, has l ack of transportation kept you from meetings, work, or from getting things needed for daily living? Patient declined 08/10/2024 Housing Stability Vital Sign Answer Akshat e Recorded In the last 12 months, was t here a time when you were not able to pay the mortgage or rent on time? Patient declined 08/11/19 25 In the past 12 months, how m any times have you moved where you were living? 0 08/10/2024 At any time in the past 12 m [facility], were you homeless or living in a usp (including now)? Patient declined 08/10/2024 Sex and Gender Information Value Date Recorded Sex Assigned at Male 08/10/2024 3:41 PM CDT Legal Sex Male 1:13 PM CDT Gender Identity Male 08/10/2024 3:41 PM CDT Sexual Orientation Straight 08/10/2024 3: 41 PM CDT Occupation Industry Job Start Date Job End Date retired Not on file Not on file Not on file documented as of this encounter Functional Status * Are you deaf or do you have serious difficulty hearing Answer Date of Assessment Author Status Yes 08/10/2024 3:00 PM CDT Aguila Kim RN Active * Are you blind or do you have serious difficulty seeing, even when wearing glasses? Answer Date of Assessment Author Status Yes 08/10/2024 3:00 PM JUANT Domo Kim RN Active * Do you have serious difficulty walking or climbing stairs? Answer Date of Assessment Author Status No 08/10/2024 3:00 PM JUANT Aguila Kim RN Active * Do you have difficulty dressing or bathing? Answer Date of Assessment Author Status No 08/10/2024 3:00 PM CDT Aguila Kim RN Active * Because of a physical, mental, or emotional condition, do you have difficulty doing errands alone such as visiting a doctor's office or shopping? Answer Date of Assessment Author Status No 08/10/2024 3:00 PM JUANT Aguila Kim RN Active documented as of this encounter Mental Status * Because of a physical, mental, or emotional condition, do you have serious difficulty concentrating, remembering, or making decisions? Answer Entry Date Author Status No 08/10/2024 3:00 PM JUANT Aguila Kim RN Active documented in this encounter Progress Notes * Lizet Johnson Superintendent Distribution - 09/16/2024 5:13 AM CDT Images from the original note were not included. [employer] alerted to a pause vs chb at 0406 with min heart rate 19 bpm/ max 39 bpm/ [id number] bpm with no button push for symptoms - a partial summary is also included for mobitz II events and can be viewed under media * Cary Brower - 09/11/2024 10:44 AM CDT 30 DAY BG SHIPPED FED EX OUT: [id number] [place]: [id number] documented in this encounter Plan of Treatment Pending Results Name Type Priority Associated Diagnoses Date /Time CLINIC - OUTPATIENT EVENT RECORDER (ECG) UP TO 30 DAYS COMPLETE (Holter) EKG-NonRad Routine TIA (transient ischemic attack) 09/16/2024 6:12 AM CDT documented as of this encounter Procedures Procedure Name Priority Date/Time Associated Diagnosis Comments EVENT RECORDER (ECG) UP TO 30 DAYS COMPLETE Routine 09/16/2024 6:12 AM CDT TIA (transient ischemic attack) documented in this encounter Visit Diagnoses Diagnosis TIA (transient ischemic attack) Unspecified transient cerebral ischemia documented in this encounter Care Teams National Van Owner Operator Relationship Specialty Start Date End Date Jake Pond MD [address] [place] [address] PCP - General INTERNAL MEDICINE 08/17/16 Teo Reeder MD [address] [place] [address] CARDIOVASCULAR DISEASE 08/17/16 documented as of this encounter
--- OUTSIDE RECORDS SUMMARY | 2024-09-16 06:26 | XMS_ITS | Data Portability ---
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 We will order 30d monitor to rule out paroxysmal atrial fibrillation at [facility]. If no atrial fibrillation is found this will complete his stroke work up. There will be no need for half-way monitoring. 2. Patient will return in 6 weeks to review 30d monitor and complete P2Y12 to evaluate platelet reactivity units. PRU therapeutic range is 50-200. 3. Patient will continue on statin for secondary stroke prevention. I personally spent a total of 50 minutes on the patient on this date of service including both [id number] and non slmf-eu-paym time excluding any separately reportable services. Jenn Orozco CNP [facility] Neurology csieren Not available 08/29/2024 23:37:32 Plan of Treatment Reminders Order Date Submit Date Provider Last Modified By Organization Details Last Modified Time Details Appointments Establish ed Patient 40.EST 2024 10:20A M Jenn Orozco Not available Not available Not available Lab None recorded. Referral None recorded. Procedures None recorded. Surgeries None recorded. Imaging None recorded. Medication Orders None recorded. Patient TargetsNo targets recorded. Patient InstructionsNo instructions recorded. Reason for Referral None Reported. Problems Name Problem SNOMED Code Status Onset Date Resolution Date Notes Provider Name and Address Organization Details Recorded Time Transient cerebral ischemia 849705418 Active 2024 Sandra Henao [facility] 5 10:57:01 Hyperlipidemia 21956346 Active 2024 JENN JAIROROX, EXHIBITS CURATOR [address] [place] [address], [phone], [facility] 5 23:38:37 Hypertensive disorder 74333513 Active 2024 JENN JAIROROX, EXHIBITS CURATOR [address] [place] [address], [phone], [facility] 5 23:38:48 Obstructive sleep apnea syndrome 58851269 Active 2024 JENN OROZCO, EXHIBITS CURATOR [address] [place] [address], [phone], [facility] 5 23:38:54 Problem Notes None recorded. Medical Equipment None Reported. Allergies No known drug allergies Medications Name Sig Start Date Stop Date Status Note LastModified by Organization Details LastModified Time fluconazole 100 mg tablet TAKE 2 TABLETS BY MOUTH EVERY DAY active Not Available Not Available No t Available atorvastati n 40 mg tablet Take 1 tablet every day by oral route. active Not Available Not Available No t Available metoprolol succinate ER 50 mg tablet,exte nded release 24 hr TAKE 1/2 TABLET BY MOUTH EVERY MORNING active Not Available Not Available No t Available clopidogrel 75 mg tablet TAKE 1 TABLET BY MOUTH EVERY DAY active Not Available Not Available No t Available amlodipine 5 mg tablet TAKE 1 TABLET ONCE DAILY active Not Available Not Available No t Available hydrocortis one 2.5 % topical cream with perineal applicator APPLY RECTALLY TWICE DAILY DIRECTED. active Not Available Not Available No t Available pravastatin 10 mg tablet TAKE 1 TABLET DAILY 08/29 completed Not Available Not Available Not Available esomeprazol e magnesium 40 mg capsule,del ayed release TAKE 1 CAPSULE ONCE DAILY active Not Available Not Available No t Available clotrimazol e-betametha sone 1 %-0.05 % topical cream PLEASE SEE ATTACHED FOR DETAILED DIRECTION S active Not Available Not Available No t Available doxycycline hyclate 100 mg tablet TAKE 1 TABLET BY MOUTH TWICE A DAY active Not Available Not Available No t Available amoxicillin 875 mg-potassiu m clavulanate 125 mg tablet TAKE 1 TABLET BY MOUTH EVERY 12 HOURS active Not Available Not Available No t Available escitalopra m 10 mg tablet TAKE 1 TABLET DAILY active Not Available Not Available No t Available Klayesta 100,000 unit/gram topical powder APPLY TO AFFECTED AREA 3 TIMES A DAY active Not Available Not Available No t Available Vitals Date Recorded Body weight Heart rate Oxygen saturation Oxygen saturation in Arterial blood by Pulse oximetry Systolic blood pressure Diastolic blood pressure Provider Name and Address Organization Details Last Updated DateTime 5 316842. 61 g 60 /min 95 % 95 % 128 mm[Hg] 70 mm[Hg] Sona Almodovar [facility] 5 12:01:02 Social History None recorded. Functional Status None recorded. Mental Status None recorded. Family History Nothing Reported. Medical History No medical history recorded. Past Encounters Encounter ID Performer Location Encounter Start Date Encounter Closed Date Diagnosis/Indication Diagnosis SNOMED-CT Code Diagnosis ICD10 Code Diagnosis Note [id number] JENN OROZCO CNP [facility]) [address] [place] [address] 08/29/2024 11:38:31 08/29/2024 12:36:37 Hyperlipidemia 89454447 E78.5 Hypertensive disorder 38 364023 I10 Obstructiv e sleep apnea syndrome 39074521 G47.33 History of transient ischemic attack 113290882 Z86.73 Health Concerns Section Related Observation LastModified by Organization Detai ls LastModified Time None Recorded Concern Status LastModified by Organization Details LastModified Time None Recorded Advance Directives Directive None Recorded Payers Encounter Date Sequence Insurance Name Policy Number Policy Escobar Covered Member ID Escobar Member ID Guarantor Name 08/29/2024 1 [employer] (MEDICARE REPLACEMENT PPO) [id number] 1 Galdino Duggan [id number] Galdino Duggan Notes Date Note Type Note Provider Name and Address Organization Details Recorded Time 08/29/2024 text/html Galdino Olga Lidia Sr is an 83-year-old male here with his family member for hospital discharge visit. Patient suffered an episode of left leg weakness on August 10, 2024. This was weakness from his knee to his foot and caused him to fall when he was trying to get out of the bathtub. CT of the head was negative for hemorrhage. CTA of the head and neck showed no large vessel occlusion or high-grade stenosis. MRI of the brain showed old tiny infarcts in the bilateral basal ganglia and mild small vessel disease. Echocardiogram showed an EF of 67%, mildly enlarged left atrium, and no PFO. Patient was started on dual antiplatelet therapy of aspirin 81 mg and Plavix for 21 days with Plavix monotherapy to follow. Patient LDL is 73 and he was on atorvastatin 40 mg prior. A1c 6.1. Blood pressure in office today is 128/70. Patient denies any repeat symptoms at this time. JENN OROZCO, EXHIBITS CURATOR [address] [place] [address], [phone], [place] [facility] 08/31/2024 09:49:21
--- OUTSIDE RECORDS SUMMARY | 2024-09-16 06:26 | XMS_ITS | Encounter Summary ---
Author Organization [facility] Address [facility] [place] [address] Care Team Providers Care Cushion Padder Name Role Phone Jake Pond MD Primary Care Provider [phone] Teo Reeder MD Unavailable Unavailab le Encounter Details Date Type Department Care Team (Late st Contact Info) Description 09/07/2016 Abstract [facility] [address] [place] [id number] Teo Reeder MD Social History Tobacco Use [...] on filedocumented in this encounter Care Teams Cushion Padder Relationship Specialty Start Date End Date Jake Pond MD [address] [place] [address] PCP - General INTERNAL MEDICINE 08/17/16 Teo Reeder MD [address] [place] [address] CARDIOVASCULAR DISEASE 08/17/16 documented as of this encounter
--- OUTSIDE RECORDS SUMMARY | 2024-09-16 06:26 | XMS_ITS | Clinical Summary ---
Author Organization [facility] Address [facility] [place] [address] Care Team Providers Care Gas Fitter Helper Name Role Phone Jake Pond MD Primary Care Provider [phone] Teo Reeder MD Unavailable Unavailab le Allergies No known active allergies Medications esomeprazole (NEXIUM) 40 MG packet Take 40 mg by mouth every morning before breakfast. Active escitalopram 10 MG tablet Take 1 tablet (10 mg total) by mouth daily. Active amlodipine 5 MG tablet Take 1 tablet (5 mg total) by mouth daily. Active metoprolol succinate 50 MG 24 hr tablet Take 0.5 tablets (25 mg total) by mouth. Active atorvastatin (LIPITOR) 40 MG tablet Take 1 tablet (40 mg total) by mouth nightly at bedtime. 30 tablet 08/13/2024 Active clopidogrel (PLAVIX) 75 MG tablet Take 1 tablet (75 mg total) by mouth daily for 30 days. 30 tablet 08/13/2024 09/13/19 25 aspirin 81 MG chewable tablet Chew 1 tablet (81 mg total) by mouth daily for 20 days. 20 tablet 08/13/2024 09/03/19 25 Active Problems Problem Noted Date Diagnosed Date TIA (transient ischemic attack) 08/10/2024 Stroke (cerebrum) ([facility]) 08/10/2024 Essential (primary) hypertension 09/08/2016 Hyperlipidemia, mixed 09/08/2016 Bilateral carotid artery disease 09/08/2016 Resolved Problems Problem Noted Date Diagnosed Date Resolved Date Shortness of breath 09/08/2016 09/09/19 17 Encounters Date Type Department Care Team Description 09/11/2024 12:00 PM CDT Telephone [facility] [address] [place] [id number] Jenn Candelaria NP Holter Monitor 08/31/2024 Telephone [facility] [address] [place] [address] Jenn Candelaria NP Orders 08/10/2024 3:35 PM CDT - 08/12/2024 2:09 PM CDT Hospital Encounter [facility] Neurology [address] [place] [address] Jong Davis MD Markapuram, Srikanth, MD Discharge Disposition: Home or Self Care (Routine Discharge) 08/10/2024 Travel from Last 3 Months Social History Tobacco Use Types Packs/Day Years Used Date Smoking Tobacco: Former [facility] Utilities Answer Date Recorded In the past 12 months has [facility] RoomActually, gas, oil, or water [place] threatened to shut off services in your [...] any time in the past [address] [facility], were you homeless or living in a fci (including now)? Patient declined 08/10/2024 Sex and [...] Sign Reading Time Taken Comments Blood Pressure 136/42 08/12/2024 8:14 AM CDT Pulse 78 08/12/2024 8:14 AM CDT Temperature 36.8 C (98.2 F) 08/12/2024 8:14 AM CDT Respiratory Rate 20 08/12/2024 8:14 AM CDT Oxygen Saturation 95% 08/12/2024 8:14 AM CDT Inhaled Oxygen Concentration - - Weight 110.9 kg (244 lb 8 oz) 08/12/2024 1:11 AM CDT Height 172.7 cm (5' 8 ) 08/10/2024 3:00 PM CDT Body Mass Index 37.18 08/10/2024 3:00 PM CDT Plan of Treatment Health Maintenance Due Date Last Done Comments Annual Medicare Wellness Visit 11/17/2007 Pneumococcal Vaccine: 50+ Years (2 of 2 - PPSV23) 01/15/2017 01/16/2016 COVID-19 Vaccine ( season) 2024 02/09/2024, 03/17/2023, 02/25/2022, Additional history exists DTaP, Tdap and Td Vaccines (3 - Td or Tdap) 04/16/2029 04/16/2019, 07/14/2017 Zoster Vaccines Completed 07/31/2019, 04/16/2019 RSV Immunization or 60+ Years Completed 08/02/2023 Meningococcal B Vaccine Aged Out No l onger eligible based on patient's age to complete this topic Meningococcal Vaccine Aged Out No pete travis eligible based on patient's age to complete this topic RSV Immunizations Under 20 Months Aged Out No longer eligible based on patient's age to complete this topic Procedures Procedure Name Priority Date/Time Associated Diagnosis Comments EVENT RECORDER (ECG) UP TO 30 DAYS COMPLETE Routine 09/16/2024 6:12 AM CDT TIA (transient ischemic attack) BASIC METABOLIC PANEL Routine 08/12/2024 4:23 AM CDT POCT GLUCOSE - TOBAR DOCKED DEVICE Routine 08/11/2024 4:55 PM CDT POCT GLUCOSE - TOBAR DOCKED DEVICE Routine 08/11/2024 11:31 AM CDT USE ECHOCARDIOGRAM Today 08/11/2024 8: 14 AM CDT POCT GLUCOSE - TOBAR DOCKED DEVICE Routine 08/11/2024 6:47 AM CDT LIPID PANEL Routine 08/11/2024 3:01 AM CDT HEMOGLOBIN, GLYCOSYLATED Routine 08/11/2024 3:01 AM CDT BASIC METABOLIC PANEL Routine 08/11/2024 3:01 AM CDT CBC W/DIFF AUTOMATED Routine 08/11/2024 3:01 AM CDT MRI BRAIN WO STROKE FAST PROTOCOL Today 08/11/2024 1:29 AM CDT POCT GLUCOSE - TOBAR DOCKED DEVICE Routine 08/10/2024 8:16 PM CDT POCT GLUCOSE - TOBAR DOCKED DEVICE Routine 08/10/2024 6:40 PM CDT from Last 3 Months Results * (ABNORMAL) BASIC METABOLIC PANEL (08/12/2024 4:23 AM CDT) Only the most recent of2 resultswithin the time period is included. SODIUM S/P/B 136 136 - 145 MMOL/L 08/12/2024 5:00 AM CDT [facility] POTASSIUM S/P/B 3.2(L) 3.5 - 5.1 MMOL/L 08/12/2024 5:00 AM CDT [facility] CHLORIDE S/P/B 106 97 - 115 MMOL/L 08/12/2024 5:00 AM CDT [facility] CO2 21.8 21.0 - 32.0 MMOL/L 08/12/2024 5:00 AM CDT [facility] GLUCOSE 104 74 - 106 MG/DL 08/12/2024 5:00 AM CDT [facility] BUN 11 7 - 18 MG/DL 08/12/2024 5:00 AM CDT [facility] CREATININE S/P/B 1.18 0.70 - 1.30 MG/DL 08/12/2024 5:00 AM CDT [facility] CALCIUM S/P/B 8.1(L) 8.5 - 10.1 MG/DL 08/12/2024 5:00 AM CDT [facility] ANION GAP 8.2 2.0 - 10.0 MMOL/L 08/12/2024 5:00 AM T [facility] OSMOLALITY (CALC) 282 MOSM/KG 025 5:00 AM T [facility] Comment:REFERENCE RANGE NOT ESTABLISHED GFR ESTIMATE 62(L) >90 ML/MIN/1. 73 M2 08/12/2024 5:00 AM CDT [facility] GFR NOTES GFR REFERENCE S: 08/12/2024 5:00 AM CDT [facility] Comment: THE ESTIMATED GFR IS CALCULATED USING THE 2020 CKD-EPI EQUATION. THE FOLLOWING CATEGORIES FOR GRADING RENAL FUNCTION ARE RECOMMENDED BY THE INTERNATIONAL SOCIETY OF NEPHROLOGY (KDIGO 2012 CLINICAL PRACTICE GUIDELINE). G1,NORMAL OR HIGH: >89 ml/min/1.73 m2 G2,MILDLY DECREASED: 60-89 ml/min/1.73 m2 G3A,MILDLY TO MODERATELY DECREASED: 45-59 ml/min/1.73 m2 G3B,MODERATELY TO SEVERELY DECREASED: 30-44 ml/min/1.73 m2 G4,SEVERELY DECREASED: 15-29 ml/min/1.73 m2 G5,KIDNEY FAILURE: <15 ml/min/1.73 m2 08/12/2024 4:23 AM CDT us Brad Wang MD LABORATORY Final Res ult Performing Organization Address City/[facility]/ZIP Co de Phone Number [facility] [address] [place] [address], [place] [phone] [id number] * (ABNORMAL) POCT glucose (08/11/2024 4:55 PM CDT) Only the most recent of5 resultswithin the time period is included. Pathologist [facility] GLUCOSE POC 110(H) 70 - 109 08/11/2024 5:06 PM CDT [facility] 08/11/2024 4:55 PM CDT us Brad Wang MD POCT ORDERABLES - DEVICE Final Result Performing Organization Address [facility]/ZIP Co de Phone Number [facility] [address] [place] [address], [place] [phone] [id number] * USE ECHOCARDIOGRAM (08/11/2024 8:14 AM CDT) Anatomical Region Laterality Modality Cardiac Echocardiogram 08/11/2024 7:40 AM CDT Narrative 08/11/2024 12:57 PM CDT Echocardiography Report Pat.Name: LEODAN DUGGAN Pat.ID: [id number] .Date: 08/11/2024 : [id number] NON-STAFF PROVIDER DOMINIKDPNBA EWDPROV Exam Time: 7:40:00 AM Study Type:ECHO WITH CARDIAC DOPPLER COMP Height: 173 cm Weight: 111 kg BSA: 2.23 m2 Age: 7 1940,83Y Sex: M BP: 127/67 Sonogrphr: Vick Barry [facility] Pat. Stat.:Inpatient Room: 822 CPT - 4: [id number] Reason for Study:TIA Procedures: 2D, M-mode, Doppler, Color Flow, Portable, Intraveneous saline contrast was used to help determine presence of intracardiac shunting. ++++++++++++++++++++++++++++++++++++ SUMMARY: ++++++++++++++++++++++++++++++++++++ The left ventricular size is normal. The left ventricular systolic function is normal. The calculated ejection fraction is 67%. Left ventricular diastolic function is abnormal. Wall motion appears normal in all segments. Right ventricular systolic function is normal. Right ventricular systolic pressure is 32 mmHg. The agitated saline injection showed no clear evidence of shunting into the left atrium, consistent with no patent foramen ovale. No evidence of pericardial effusion. Prominent pericardial fat pad visualized. Aortic root is mildly dilated. Ascending aorta is mildly dilated. The aortic root measures 4.13 cm. The sinus of Valsalva measures 4.48cm. The proximal ascending aorta measures 4cm. The aortic valve is trileaflet. No evidence of aortic valve stenosis. Trace to mild aortic regurgitation. Trace mitral regurgitation. Thickened anterior and posterior mitral annulus. The tricuspid valve appears structurally normal. ++++++++++++++++++++++++++++++++++++ FINDINGS: ++++++++++++++++++++++++++++++++++++ LV: The left ventricular size is normal. The left ventricular systolic function is normal. The calculated ejection fraction is 67%. No concentric left ventricular hypertrophy. The septal E/e' is indeterminate at 8-15. The lateral E/e' is normal at <8. The average E/e' is indeterminate at 9-12 and EF is > or equal to 50. Left ventricular diastolic function is abnormal. Left ventricular filling pressure is indeterminate. WM: Wall motion appears normal in all segments. LVOT: The left ventricular outflow tract size is normal. RV: The right ventricular size is normal. Right ventricular systolic function is normal. Right ventricular systolic pressure is 32 mmHg. TAPSE = 21mm (<16 mm indicates systolic RV dysfunction). LA: The left atrial volume is mildly increased (34- 41ml/M2). RA: Right atrial size is normal. IAS: The agitated saline injection showed no clear evidence of shunting into the left atrium, consistent with no patent foramen ovale. KRYSTEN: No evidence of pericardial effusion. Prominent pericardial fat pad visualized. AO: Aortic root is mildly dilated. Ascending aorta is mildly dilated. The aortic root measures 4.13 cm. The sinus of Valsalva measures 4.48cm. The proximal ascending aorta measures 4cm. PA: Estimated right atrial pressure of 3 mmHg. SVn: Inferior vena cava is normal. Inferior vena cava shows >50% collapse with respiration consistent with normal right atrial pressure. AV: The aortic valve is trileaflet. No evidence of aortic valve stenosis. Trace to mild aortic regurgitation. Dimensionless index of 0.8. MV: Trace mitral regurgitation. No evidence of mitral stenosis. Thickened anterior and posterior mitral annulus. The mean gradient across the mitral valve is 1mmHg at a heart rate of 71bpm. PV: The pulmonic valve is normal There is trace pulmonic regurgitation TV: The tricuspid valve appears structurally normal. There is trace tricuspid regurgitation. ++++++++++++++++++++++++++++++++++++ MEASUREMENTS: ++++++++++++++++++++++++++++++++++++ DOPPLER LVOT LVOTpkPG 5 mmHg LVOTmnPG 3 mmHg LVOTpkVel 113 cm/s (70-110)+* LVOT SV 89 ml LVOT TVI 24.5 cm LVOT CO 118 ml/s AV Forward Flow AV TVI 30.8 cm AV pkPG 8 mmHg AV pkVel 138 cm/s (100-170) Area (TVI) 2.89 cm2 (3-5)* AV mnVel 98.3 cm/s Area (Kt) 2.97 cm2 (3-5)* AV mnPG 4 mmHg AV Regurg Flow AV pkVel 389 cm/s AV P1/2t 515 msec AV pkPG 61 mmHg MV Forward Flow MV DeTm 232 msec MV pkPG 3 mmHg MVA P1/2t 3.67 cm2 (4-6)* MV E/A 0.9 MV P1/2t 60 msec (30-60)+ MV pkE 63.5 cm/s (60-130) MV mnPG 1 mmHg MV pkA 70.3 cm/s TV Regurg Flow TV pkPG 29 mmHg TV pkVel 268 cm/s (30-70)* Lat E' Lat e 8.27 cm/s Lat E/E' Lat E/e 7.7 Med E' Med e 6.2 cm/s Med E/E' Med E/e 10.2 Aortic Valve Aortic Valve Ar 1.3 Aortic Valve Ve 0.82 AV DI Value 0.8 JAYCE (VTI) Index Value 1.29 LV Mass 2D Value 159 g LV Mass [id number] Value 71.3 g/m2 Right Ventricle Right Ventricle 15.4 cm/s SV (LVOT) Index Value 40 ml 2D Left Ventricle LVIDd 4.33 cm (3.6-5.2) LV EF(Bi-Plane) 66.6 % (63-77) LVIDs 2.51 cm (2.3-3.9) LVPW LVPWd 1.08 cm Ventricular Septum IVSd 1.07 cm Aorta Ao Rtd 4.13 cm Ao Asc 4 cm (2.1-3.4)* Ao Sin 4.48 cm (2.5-3.3)+* LVOT LVOT 2.15 cm Ratios IVS Aortic Sinotubular Junction Diameter 3.04 cm LA Biplane LAVol I BP 36 ml/m2 MMODE TA Tricuspid Annul 2.09 cm <Electronic Signature> 08/11/2024 12:57 PM Charles Ferro M.D. Procedure Note Charles Ferro MD - 08/11/2024 Echocardiography Report Pat.Name: LEODAN DUGGAN Pat.ID: [id number] .Date: 08/11/2024 : [id number] NON-STAFF PROVIDER EWDPROV EWDPROV Exam Time: 7:40:00 AM Study Type:ECHO WITH CARDIAC DOPPLER COMP Height: 173 cm Weight: 111 kg BSA: 2.23 m2 Age: 7 1940,83Y Sex: M BP: 127/67 Sonogrphr: Vick Barry [facility] Pat. Stat.:Inpatient Room: 822 CPT - 4: [id number] Reason for Study:TIA Procedures: 2D, M-mode, Doppler, Color Flow, Portable, Intraveneous saline contrast was used to help determine presence of intracardiac shunting. ++++++++++++++++++++++++++++++++++++ SUMMARY: ++++++++++++++++++++++++++++++++++++ The left ventricular size is normal. The left ventricular systolic function is normal. The calculated ejection fraction is 67%. Left ventricular diastolic function is abnormal. Wall motion appears normal in all segments. Right ventricular systolic function is normal. Right ventricular systolic pressure is 32 mmHg. The agitated saline injection showed no clear evidence of shunting into the left atrium, consistent with no patent foramen ovale. No evidence of pericardial effusion. Prominent pericardial fat pad visualized. Aortic root is mildly dilated. Ascending aorta is mildly dilated. The aortic root measures 4.13 cm. The sinus of Valsalva measures 4.48cm. The proximal ascending aorta measures 4cm. The aortic valve is trileaflet. No evidence of aortic valve stenosis. Trace to mild aortic regurgitation. Trace mitral regurgitation. Thickened anterior and posterior mitral annulus. The tricuspid valve appears structurally normal. ++++++++++++++++++++++++++++++++++++ FINDINGS: ++++++++++++++++++++++++++++++++++++ LV: The left ventricular size is normal. The left ventricular systolic function is normal. The calculated ejection fraction is 67%. No concentric left ventricular hypertrophy. The septal E/e' is indeterminate at 8-15. The lateral E/e' is normal at <8. The average E/e' is indeterminate at 9-12 and EF is > or equal to 50. Left ventricular diastolic function is abnormal. Left ventricular filling pressure is indeterminate. WM: Wall motion appears normal in all segments. LVOT: The left ventricular outflow tract size is normal. RV: The right ventricular size is normal. Right ventricular systolic function is normal. Right ventricular systolic pressure is 32 mmHg. TAPSE = 21mm (<16 mm indicates systolic RV dysfunction). LA: The left atrial volume is mildly increased (34- 41ml/M2). RA: Right atrial size is normal. IAS: The agitated saline injection showed no clear evidence of shunting into the left atrium, consistent with no patent foramen ovale. KRYSTEN: No evidence of pericardial effusion. Prominent pericardial fat pad visualized. AO: Aortic root is mildly dilated. Ascending aorta is mildly dilated. The aortic root measures 4.13 cm. The sinus of Valsalva measures 4.48cm. The proximal ascending aorta measures 4cm. PA: Estimated right atrial pressure of 3 mmHg. SVn: Inferior vena cava is normal. Inferior vena cava shows >50% collapse with respiration consistent with normal right atrial pressure. AV: The aortic valve is trileaflet. No evidence of aortic valve stenosis. Trace to mild aortic regurgitation. Dimensionless index of 0.8. MV: Trace mitral regurgitation. No evidence of mitral stenosis. Thickened anterior and posterior mitral annulus. The mean gradient across the mitral valve is 1mmHg at a heart rate of 71bpm. PV: The pulmonic valve is normal There is trace pulmonic regurgitation TV: The tricuspid valve appears structurally normal. There is trace tricuspid regurgitation. ++++++++++++++++++++++++++++++++++++ MEASUREMENTS: ++++++++++++++++++++++++++++++++++++ DOPPLER LVOT LVOTpkPG 5 mmHg LVOTmnPG 3 mmHg LVOTpkVel 113 cm/s (70-110)+* LVOT SV 89 ml LVOT TVI 24.5 cm LVOT CO 118 ml/s AV Forward Flow AV TVI 30.8 cm AV pkPG 8 mmHg AV pkVel 138 cm/s (100-170) Area (TVI) 2.89 cm2 (3-5)* AV mnVel 98.3 cm/s Area (Kt) 2.97 cm2 (3-5)* AV mnPG 4 mmHg AV Regurg Flow AV pkVel 389 cm/s AV P1/2t 515 msec AV pkPG 61 mmHg MV Forward Flow MV DeTm 232 msec MV pkPG 3 mmHg MVA P1/2t 3.67 cm2 (4-6)* MV E/A 0.9 MV P1/2t 60 msec (30-60)+ MV pkE 63.5 cm/s (60-130) MV mnPG 1 mmHg MV pkA 70.3 cm/s TV Regurg Flow TV pkPG 29 mmHg TV pkVel 268 cm/s (30-70)* Lat E' Lat e 8.27 cm/s Lat E/E' Lat E/e 7.7 Med E' Med e 6.2 cm/s Med E/E' Med E/e 10.2 Aortic Valve Aortic Valve Ar 1.3 Aortic Valve Ve 0.82 AV DI Value 0.8 JAYCE (VTI) Index Value 1.29 LV Mass 2D Value 159 g LV Mass [id number] Value 71.3 g/m2 Right Ventricle Right Ventricle 15.4 cm/s SV (LVOT) Index Value 40 ml 2D Left Ventricle LVIDd 4.33 cm (3.6-5.2) LV EF(Bi-Plane) 66.6 % (63-77) LVIDs 2.51 cm (2.3-3.9) LVPW LVPWd 1.08 cm Ventricular Septum IVSd 1.07 cm Aorta Ao Rtd 4.13 cm Ao Asc 4 cm (2.1-3.4)* Ao Sin 4.48 cm (2.5-3.3)+* LVOT LVOT 2.15 cm Ratios IVS Aortic Sinotubular Junction Diameter 3.04 cm LA Biplane LAVol I BP 36 ml/m2 MMODE TA Tricuspid Annul 2.09 cm <Electronic Signature> 08/11/2024 12:57 PM Charles Ferro M.D. Ellen Quintana [employer] SAL[employer]ERSON ECHO Final Result * (ABNORMAL) HEMOGLOBIN, GLYCATED (08/11/2024 3:01 AM CDT) Pathologist [facility] HGB A1C 6.1(H) <5.7 % 08/11/2024 3:53 AM CDT [facility] ESTIMATED AVG GLUCOSE 128(H) 74 - 114 MG/DL 08/11/2024 3:53 AM CDT [facility] 08/11/2024 3:01 AM CDT Ellen Quintana [employer] LABORATORY Final Result [facility] [address] [place] [address], [id number] * (ABNORMAL) LIPID PANEL (08/11/2024 3:01 AM CDT) Pathologist [facility] CHOLESTEROL 120 MG/DL 08/11/2024 4:04 AM CDT [facility] Comment:DESIRABLE: <200 TRIGLYCERIDES 72 MG/DL 08/11/2024 4:04 AM CDT [facility] Comment:<150 NORMAL HDL 33(L) >39 MG/DL 08/11/2024 4:04 AM CDT [facility] LDL (CALCULATED) 73 MG/DL 08/12/19 4:04 AM CDT [facility] Comment:<100 OPTIMAL VLDL CALCULATION 14 MG/DL 08/12/19 4:04 AM CDT [facility] Comment:REFERENCE RANGE NOT ESTABLISHED CHOL/HDL RATIO 3.6 08/11/2024 4:04 AM CDT [facility] Comment:REFERENCE RANGE NOT ESTABLISHED LDL/HDL 2.2 08/11/2024 4:04 AM CDT [facility] Comment:REFERENCE RANGE NOT ESTABLISHED NON HDL CHOLESTEROL 87 MG/DL 08/11/2024 4:04 AM CDT [facility] Comment:REFERENCE RANGE NOT ESTABLISHED 08/11/2024 3:01 AM CDT Ellen A Lilian SUERO LABORATORY Final Result [facility] [address] [place] [address], [id number] * (ABNORMAL) CBC W/DIFF AUTOMATED (08/11/2024 3:01 AM CDT) WBC 8.09 4.00 - 10.80 x10'3/uL 08/11/2024 3:26 AM CDT [facility] RBC 4.23(L) 4.50 - 6.10 x10'6/uL 08/11/2024 3:26 AM CDT [facility] HGB 12.9 12.0 - 16.0 G/DL 08/11/2024 3:26 AM CDT [facility] HCT 38.8 37.0 - 52.0 % 08/11/2024 3:26 AM CDT [facility] MCV 91.7 78.0 - 100.0 FL 08/11/2024 3:26 AM CDT [facility] MCH 30.5 27.0 - 31.0 PG 08/11/2024 3:26 AM CDT [facility] MCHC 33.2 33.0 - 36.0 G/DL 08/11/2024 3:26 AM CDT [facility] RDW 13.7 11.5 - 14.5 % 08/11/2024 3:26 AM CDT [facility] PLT 178 150 - 350 x10'3/uL 08/11/2024 3:26 AM CDT [facility] MPV 9.7 7.4 - 10.4 FL 08/11/2024 3:26 AM CDT [facility] DIFFERENTIAL TYPE AUTOMATED DIFFERENTIAL 08/11/2024 3:26 AM CDT [facility] SEG NEUTROPHILS 70.4 % 3:26 AM CDT [facility] LYMPHOCYTES 13.7 % 08/11/2024 3:26 AM CDT [facility] MONOCYTES 14.3 % 08/11/2024 3:26 AM CDT [facility] EOSINOPHILS 1.0 % 08/11/2024 3:26 AM CDT [facility] BASOPHILS 0.4 % 08/11/2024 3:26 AM CDT [facility] IMMATURE GRANS % 0.2 % 08/12/19 3:26 AM CDT [facility] ABS. NEUTROPHILS 5.69 1.60 - 8.30 x10'3/uL 08/11/2024 3:26 AM CDT [facility] ABS. LYMPHOCYTES 1.11 0.80 - 4.70 x10'3/uL 08/11/2024 3:26 AM CDT [facility] ABS. MONOCYTES 1.16 0.00 - 1.50 x10'3/uL 08/11/2024 3:26 AM CDT [facility] ABS. EOSINOPHILS 0.08 0.00 - 0.40 x10'3/uL 08/11/2024 3:26 AM CDT [facility] ABS. BASOPHILS 0.03 0.00 - 0.20 x10'3/uL 08/11/2024 3:26 AM CDT [facility] ABS. IMMATURE GRANULOCYTES 0.02 0.00 - 0.03 x10'3/uL 08/11/2024 3:26 AM CDT [facility] ABS. NUCLEATED RBC'S 0.00 0.00 - 0.01 x10'3/uL 08/11/2024 3:26 AM CDT [facility] NRBC % 0.0 % 08/11/2024 3:26 AM CDT [facility] 08/11/2024 3:0 1 AM CDT Ellen A Lilian [facility] LABORATORY Final Result [facility] [address] [place] [address], [id number] * MRI BRAIN WO STROKE FAST PROTOCOL (08/11/2024 1:29 AM CDT) Anatomical Region Laterality Modality Head, Neck Magnetic Resonan ce 08/11/2024 1:59 AM CDT Impressions 08/11/2024 2:04 AM CDT IMPRESSION: 1. No acute intracranial abnormality. 2. 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 3. Tiny old lacunar infarcts bilateral basal ganglia/capsules. 4. Perhaps a tiny osteoma in or just above the left frontal sinus. Referred By: PROVIDER NON-STAFF Interpreted By: Keren Ferrer MD, 08/11/2024 1:59 AM Narrative 08/11/2024 2:04 AM CDT [address] [id number] EXAMINATION: MRI BRAIN WO STROKE FAST PROTOCOL. Multiplanar, multisequence MR imaging of the brain was performed without intravenous contrast. INDICATION: TIA. COMPARISON: None. FINDINGS: No acute ischemia, infarct, or intracranial hemorrhage. No mass effect, midline shift, or acute osseous abnormality. 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 Age appropriate atrophy. The ventricles and sulci are normal for age. No abnormal extra-axial fluid collections. Mild nonspecific confluent and nodular foci of FLAIR and T2 hyperintensity in the periventricular and deep cerebral white matter in bilateral cerebral hemispheres without edema or mass effect, likely mild chronic white matter microvascular disease. Tiny old lacunar infarcts bilateral basal ganglia/capsules. Appropriate flow-voids are seen in the major vessels of the [place]. No trace mucosal thickening in a few ethmoid air cells and a few left mastoid air cells. No other significant paranasal sinus or mastoid air cell disease. Procedure Note Keren Ferrer MD - 08/11/[address] [address] EXAMINATION: MRI BRAIN WO STROKE FAST PROTOCOL. Multiplanar,multisequence MR imaging of the brain was performed without intravenouscontrast. INDICATION: TIA. COMPARISON: None. FINDINGS: No acute ischemia, infarct, or intracranial hemorrhage. No masseffect, midline shift, or acute osseous abnormality. 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 Ageappropriate atrophy. The ventricles and sulci are normal for age. Noabnormal extra-axial fluid collections. Mild nonspecific confluent andnodular foci of FLAIR and T2 hyperintensity in the periventricular anddeep cerebral white matter in bilateral cerebral hemispheres without edemaor mass effect, likely mild chronic white matter microvascular disease.Tiny old lacunar infarcts bilateral basal ganglia/capsules. Appropriateflow-voids are seen in the major vessels of the [place]. Notrace mucosal thickening in a few ethmoid air cells and a few left mastoidair cells. No other significant paranasal sinus or mastoid air celldisease. IMPRESSION: 1. No acute intracranial abnormality. 2. Age-appropriate atrophy with mild nonspecific chronic periventricularand deep cerebral white matter microvascular disease in bilateral cerebralhemispheres. 3. Tiny old lacunar infarcts bilateral basal ganglia/capsules. 4. Perhaps a tiny osteoma in or just above the left frontal sinus. 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
--- OUTSIDE RECORDS SUMMARY | 2024-09-16 06:26 | XMS_ITS | Continuity of Care Document ---
Author Organization [facility] Address [address] [place] [address] Phone Care Team Providers Care Cabana Attendant Name Role Phone Jose A OD, Lela [...] Diagnoses Date Provider Providers Copied on Encounter [facility], [address], [place], [place], [id number], [place] tel:[phone] [address] [place] No Information Jose A OD Lela. [address], [place], [place], [id number], [place]. tel:[phone] Family History Family Member Type Diagnosis Age [...]
--- NOTE | 2024-09-16 06:33 | ECG_ITS ---
Test Date: 2024-09-16 06:39:40 Measurements Intervals [place] Rate: 65 P: 0 AR: 0 QRS: -6 QRSD: 148 T: -12 QT: 407 QTc: 424 Interpretive Statements sinus rhythm with first degree block RIGHT BUNDLE BRANCH BLOCK [120+ ms QRS DURATION, UPRIGHT V1, 40+ ms S IN I/aVL/V4/V5/V6] Electronically Signed On 09-17-2024 06:56:29 CDT by Benjie Hwang M.D.
--- OUTSIDE RECORDS SUMMARY | 2024-09-16 06:37 | XMS_ITS | Continuity of Care Document ---
Author Organization [facility] Address [address] [place] [address] Phone Care Team Providers Care Pediatric Rn Name Role Phone Jose A OD, Lela [...] Diagnoses Date Provider Providers Copied on Encounter [facility], [address], [place], [place], [id number], [place] tel:[phone] [address] [place] No Information Jose A OD Lela. [address], [place], [place], [address], [place]. tel:[phone] Family History Family Member Type Diagnosis Age At Onset No Information Payers Payer name Insurance type Covered democrat ID Authoriza tion(s) No Information Social History [...]
--- NOTE | 2024-09-16 06:42 | ED_ITS ---
HPI - Arrhythmia/Palpitations General Chief Complaint: Arrhythmia/Palpitations <Kyle Armendariz MD - Last Filed: 09/16/24 07:23> Stated Complaint: EVENT MONITOR HAD A PAUSE <Kyle Armendariz MD - Last Filed: 09/16/24 07:23> Time Seen by Provider: 09/16/24 07:29 <Kyle Armendariz MD - Last Filed: 09/16/24 07:23> Source: patient <Kyle Armendariz MD - Last Filed: 09/16/24 07:23> Mode of arrival: ambulatory <Kyle Armendariz MD - Last Filed: 09/16/24 07:23> Limitations: no limitations <Kyle Armendariz MD - Last Filed: 09/16/24 07:23> History of Present Illness HPI narrative: 83-year-old male with a history of ex smoking, GERD, hemorrhoids had a TIA involving left lower leg weakness which lasted 2 hours. The patient had an extensive workup including CT, CTA, MRI and a cardiac catheterization which was unremarkable. The patient was discharged home with an event monitor. This morning the patient was sleeping when he received a call from [facility] asking him to go to the ED. the patient was asymptomatic. No palpitation. No chest pain or shortness of breath. On presentation to the ED the patient is noted to be hemodynamically stable. [facility] was contacted and they stated the patient had -- 5 episodes of second-degree AV block type 2 the longest episode was 10.6 seconds with an average heartbeat of 45 beats per minute the slowest during the second-degree AV block type 2 episode was 29 beats per minute. -- One episode of third-degree AV block was a 26 beat per minute -- pauses-- the longest pause was 3.1 seconds. -- 8009 supraventricular ectopic beats with a burden of 4%. No supraventricular tachycardia was noted. -- Forty-five ventricular ectopic beats with a burden of less than 1%. No V- tach. -- No atrial fibrillation the patient has been asymptomatic throughout these episodes. <Kyle Armendariz MD - Last Filed: 09/16/24 07:23> Related Data Home Medications: Home Medications ?Medication ?Instructions ?Recorded ?Confirmed ?Last Taken ?Type amlodipine 5 mg tablet 5 mg PO DAILY 10/21/21 02/16/24 02/16/24 08:00 History escitalopram oxalate 10 mg tablet 10 mg PO DAILY 10/21/21 02/16/24 02/16/24 08:00 History esomeprazole magnesium 40 mg 40 mg PO DAILY 10/21/21 02/16/24 02/16/24 08:00 History capsule,delayed release (Nexium) metoprolol succinate 25 mg 25 mg PO DAILY 10/21/21 02/16/24 02/16/24 08:00 History tablet,extended release 24 hr pravastatin 10 mg tablet 10 mg PO DAILY 10/21/21 02/16/24 02/16/24 08:00 History aspirin 81 mg chewable tablet 81 mg PO DAILY 08/10/24 Unknown History (Stephanie Chewable Low Dose Aspirin) <Kyle Armendariz MD - Last Filed: 09/16/24 07:23> Allergies/Adverse Reactions: Allergies Allergy/AdvReac Type Severity Reaction Status Date / Time No Known Allergies Allergy Verified 08/10/24 09:58 <Kyle Armendariz MD - Last Filed: 09/16/24 07:23> Review of Systems 2 Review of Systems: All systems reviewed & are unremarkable except as noted in HPI and below <Kyle Armendariz MD - Last Filed: 09/16/24 07:23> Constitutional: Constitutional: Reports as per HPI and Reports no additional constitutional complaints <Kyle Armendariz MD - Last Filed: 09/16/24 07:23> Eyes: Eyes: Reports as per HPI and Reports no additional eye complaints < Kyle Armendariz MD - Last Filed: 09/16/24 07:23> ENT: Reports system reviewed and no additional complaints, except as documented and Reports as per HPI <Kyle Armendariz MD - Last Filed: 09/16/24 07:23> Cardiovascular: Cardiovascular: Reports as per HPI and Reports no additional cardiovascular complaints <Kyle Armendariz MD - Last Filed: 09/16/24 07:23> Comments: no palpitation or chest pain. no syncopal spells <Kyle Armendariz MD - Last Filed: 09/16/24 07:23> Respiratory: Respiratory: Reports as per HPI and Reports no additional respiratory complaints <Kyle Armendariz MD - Last Filed: 09/16/24 07:23> Gastrointestinal: Gastrointestinal: Reports as per HPI and Reports no additional gastrointestinal complaints <Kyle Armendariz MD - Last Filed: 09/16/24 07:23> Genitourinary: Genitourinary: Reports no additional male genitourinary complaints and Reports as per HPI <Kyle Armendariz MD - Last Filed: 09/16/24 07:23> Musculoskeletal: Musculoskeletal: Reports no additional musculoskeletal complaints and Reports as per HPI <Kyle Armendariz MD - Last Filed: 09/16/24 07:23> Integumentary/Breasts: Skin/Breast: Reports system reviewed and no additional complaints, except as docu and Reports as per HPI <Kyle Armendariz MD - Last Filed: 09/16/24 07:23> Neurologic: Reports system reviewed and no additional complaints, except as documented and Reports as per HPI <Kyle Armendariz MD - Last Filed: 09/16/24 07:23> Comments: No recent TIAs <Kyle Armendariz MD - Last Filed: 09/16/24 07:23> Psychiatric: Psychiatric: Reports no additional psychiatric complaints and Reports as per HPI <Kyle Armendariz MD - Last Filed: 09/16/24 07:23> Endocrine: Endocrine: Reports no additional endocrine complaints and Reports as per HPI <Kyle Armendariz MD - Last Filed: 09/16/24 07:23> Hematologic/Lymphatic: Hematologic/Lymphatic: Reports no additional hematologic/lymphatic complaints and Reports as per HPI <Kyle Armendariz MD - Last Filed: 09/16/24 07:23> Allergic/Immunologic: Allergic/Immunologic: Reports no additional allergic/immunologic complaints and Reports as per HPI <Kyle Armendariz MD - Last Filed: 09/16/24 07:23> PMFSH Past Medical History Medical History: Medical History (Updated 09/16/24 @ 09:41 by Star Lala MD) Brain TIA Hemorrhoid GERD (gastroesophageal reflux disease) Obesity (BMI 30-39.9) <Kyle Armendariz MD - Last Filed: 09/16/24 07:23> Surgical History Surgical History: Surgical History (Updated 09/16/24 @ 07:08 by Kyle Armendariz MD) H/O cardiac catheterization <Kyle Armendariz MD - Last Filed: 09/16/24 07:23> Family History Family History: Family History Mother Hypertension Cerebrovascular accident <Kyle Armendariz MD - Last Filed: 09/16/24 07:23> Social History Social History: Social History Smoking status: Former smoker Smokeless tobacco user: chewing tobacco Alcohol intake: never Substance use: never Living arrangements: alone Spiritual care concerns: No <Kyle Armendariz MD - Last Filed: 09/16/24 07:23> Exam 2 Narrative: pulse 70 blood pressure 147/83. Afebrile. Oxygen saturation of 96% on room air with a respiratory rate of 18 <Kyle Armendariz MD - Last Filed: 09/16/24 07:23> Const: General: healthy appearing and no acute distress <Kyle Armendariz MD - Last Filed: 09/16/24 07:23> Nutritional Appearance: well nourished <Kyle Armendariz MD - Last Filed: 09/16/24 07:23> Orientation/consciousness: patient oriented x3 <Kyle Armendariz MD - Last Filed: 09/16/24 07:23> Limitations: no limitations <Kyle Armendariz MD - Last Filed: 09/16/24 07:23> HENMT: Head: normal to inspection <Kyle Armendariz MD - Last Filed: 09/16/24 07:23> Ears: external ears normal <Kyle Armendariz MD - Last Filed: 09/16/24 07:23> Face/Nose/Sinus: Normal external nose present <Kyle Armendariz MD - Last Filed: 09/16/24 07:23> Face and sinus: normal facial exam <Kyle Armendariz MD - Last Filed: 09/16/24 07:23> Mouth: Yes Normal oral and palatal mucosa present <Kyle Armendariz MD - Last Filed: 09/16/24 07:23> Throat: posterior oropharynx normal <Kyle Armendariz MD - Last Filed: 09/16/24 07:23> Eyes: Conjunctivae: conjunctivae normal <MD Brittny Enamorado Last Filed: 09/16/24 07:23> Pupils: Equal, round and reactive pupils present <Kyle Armendariz MD - Last Filed: 09/16/24 07:23> EOM: EOMs intact bilaterally <Kyle Armendariz MD - Last Filed: 09/16/24 07:23> Direct Ophthalmoscopy: no photophobia <Kyle Armendariz MD - Last Filed: 09/16/24 07:23> Neck: Neck: normal visual inspection, no lymphadenopathy and no meningeal signs <Kyle Armendariz MD - Last Filed: 09/16/24 07:23> Chest: Chest palpation & inspection: normal inspection of the chest < Kyle Armendariz MD - Last Filed: 09/16/24 07:23> Resp: Effort & Inspection: normal respiratory effort <MD Brittny Enamorado Last Filed: 09/16/24 07:23> Auscultation: clear to auscultation bilaterally <Kyle Armendariz MD - Last Filed: 09/16/24 07:23> Cardio: Rate: regular rate <Kyle Armendariz MD - Last Filed: 09/16/24 07:23> Rhythm: regular rhythm <MD Brittny Enamorado Last Filed: 09/16/24 07:23> GI: GI Palp: Yes Soft to palpation <MD Brittny Enamorado Last Filed: 09/16/24 07:23> Auscultation: normal bowel sounds <MD Brittny Enamorado Last Filed: 09/16/24 07:23> Other: no tenderness/ rigidity / rebound. <MD Brittny Enamorado Last Filed: 09/16/24 07:23> : General: Yes no CVA tenderness <MD Brittny Enamorado Last Filed: 09/16/24 07:23> Back/Spine/Pelvis: Back: no CVA tenderness <Kyle Armendariz MD - Last Filed: 09/16/24 07:23> Skin: General skin exam: normal color <Kyle Armendariz MD - Last Filed: 09/16/24 07:23> Rashes: no rashes <Kyle Armendariz MD - Last Filed: 09/16/24 07:23> Neuro: General: patient oriented x3, moves all extremities, no meningeal signs, no focal motor deficits and CN's II-XI intact bilaterally <Kyle Armendariz MD - Last Filed: 09/16/24 07:23> Cranial nerves: Yes Nystagmus not present <Kyle Armendariz MD - Last Filed: 09/16/24 07:23> Speech: normal speech <Kyle Armendariz MD - Last Filed: 09/16/24 07:23> Other: No focal motor or sensory deficits. <Kyle Armendariz MD - Last Filed: 09/16/24 07:23> Extrem: General: normal to inspection and no clubbing, cyanosis or edema < Kyle Armendariz MD - Last Filed: 09/16/24 07:23> Psych: Mental Status: mental status grossly normal <Kyle Armendariz MD - Last Filed: 09/16/24 07:23> Affect: normal affect <Kyle Armendariz MD - Last Filed: 09/16/24 07:23> Course Course Emergency Course: History of TIA events monitor revealed second-degree AV block type 2, complete heart block and Pause lasting 3.1 seconds. Patient was asymptomatic. EKG in ED reads as AFib but appears to be normal sinus rhythm with a ventricular ectopic in bigeminal rhythm. <Kyle Armendariz MD - Last Filed: 09/16/24 07:23> Vital Signs Vital signs: Vital Signs Pulse Rate 70 09/16/24 06:25 Temperature 36.4 C L 09/16/24 06:28 Pulse Rate 58 L 09/16/24 08:32 Respiratory Rate 14 09/16/24 08:32 Blood Pressure 122/56 L 09/16/24 08:32 Pulse Oximetry 97 09/16/24 08:32 Oxygen Delivery Room Air 09/16/24 06:28 <Kyle Armendariz MD - Last Filed: 09/16/24 07:23> Vital Signs Pulse Rate 70 09/16/24 06:25 Temperature 36.4 C L 09/16/24 06:28 Pulse Rate 58 L 09/16/24 08:32 Respiratory Rate 14 09/16/24 08:32 Blood Pressure 122/56 L 09/16/24 08:32 Pulse Oximetry 97 09/16/24 08:32 Oxygen Delivery Room Air 09/16/24 06:28 <Star Lala MD - Last Filed: 09/16/24 09:41> MDM - Arrhythmia/Palpitations MDM Narrative Medical decision making narrative: second-degree AV block type 2, complete heart block and sinus pauses on events monitor patient is asymptomatic history of TIA <Kyle Armendariz MD - Last Filed: 09/16/24 07:23> second-degree AV block type 2, complete heart block and sinus pauses on events monitor patient is asymptomatic history of TIA Patient was transferred to my care at shift change and I ordered them require labs needed at this time which were all within normal limits. He had a event/ Holter monitor in place and they sent him to the ER for Mobitz 2 and complete heart block findings on the monitor. We will transfer patient to [facility] for further evaluation and likely pacemaker placement. Currently, patient is asymptomatic. <Star Lala MD - Last Filed: 09/16/24 09:41> Differential Diagnosis Differential diagnosis: Likely palpitations, ventricular tachycardia and other ( ) <Kyle Armendariz MD - Last Filed: 09/16/24 07:23> Medical Records Attestation: I reviewed the patient's medical records. <Kyle Armendariz MD - Last Filed: 09/16/24 07:23> Lab Data Attestation: I reviewed the patient's lab results. <Kyle Armendariz MD - Last Filed: 09/16/24 07:23> Result diagrams: 09/16/24 07:57 09/16/24 07:57 <Kyle Armendariz MD - Last Filed: 09/16/24 07:23> Labs: Lab Results 09/16/24 Range/Units 07:57 WBC 6.7 (4.8-10.8) K/mm3 RBC 5.15 (4.70-6.10) M/mm3 Hgb 15.4 H (12.4-15.3) g/dL Hct 47.5 H (37.0-46.0) % MCV 92.2 (78.0-102.0) fL MCH 29.9 (27.0-31.0) pg MCHC 32.4 (32-36) g/dL RDW 14.3 (11.6-14.4) % Plt Count 211 (150-420) K/mm3 MPV 9.4 (8.7-11.0) fl Immature Gran % (Auto) 0.3 H (0.0-0.0) % Neut % (Auto) 62.8 (50.0-70.0) % Lymph % (Auto) 24.2 (18.0-42.0) % [place] % (Auto) 9.6 (2.0-11.0) % Eos % (Auto) 2.5 (1.0-6.0) % Baso % (Auto) 0.6 (0.0-1.0) % Lymph # (Auto) 1.63 (1.10-4.50) K/mm3 [place] # (Auto) 0.65 (0.10-0.90) K/mm3 Eos # (Auto) 0.17 (0.02-0.50) K/mm3 Baso # (Auto) 0.04 (0.00-0.10) K/mm3 Abs Immat Gran (auto) 0.02 H (0.00-0.00) K/mm3 Absolute Neuts (auto) 4.23 (1.70-7.20) K/mm3 Absolute Nucleated RBC 0.00 (0.00-0.00) K/mm3 Nucleated RBC % 0.0 (0-0.0) % Sodium 139 (136-145) mmol/L Potassium 3.6 (3.5-5.1) mmol/L Chloride 104 (98-108) mmol/L Carbon Dioxide 29 (21-32) mmol/L Anion Gap 6 (4-12) mmol/L BUN 16 (7-18) mg/dL Creatinine 1.29 (0.70-1.30) mg/dL Estim Creat Clear Calc 48 ml/min Estimated GFR 53 L (59 - ) Glucose 113 H (70-99) mg/dL Calculated Osmolality 290 (285-295) mOsm/kg Lactic Acid 1.6 (0.4-2.0) mmol/L Calcium 8.6 (8.5-10.1) mg/dL Magnesium 1.8 (1.8-2.4) mg/dL Total Bilirubin 0.4 (0.00-1.00) mg/dL AST 19 (15-37) U/L ALT 31 (16-63) U/L Alkaline Phosphatase 102 (46-116) U/L Total Creatine Kinase 41 (39-308) U/L Troponin I 10.2 (0.00-60.4) ng/L NT-Pro-B Natriuret Pep 299 (0-450) pg/mL Total Protein 7.6 (6.4-8.2) g/dL Albumin 3.3 L (3.4-5.0) g/dL TSH 1.97 (0.36-3.74) uIU/mL Urine Color Light yellow (Yellow) Urine Appearance Clear (Clear) Urine pH 6.5 (5.0-8.0) Ur Specific [place] 1.015 (1.010-1.020) Urine Protein Negative (Negative) Urine Glucose (UA) Negative (Negative) Urine Ketones Negative (Negative) Ur Blood (Man) 1+ H (Negative) Urine Nitrate Negative (Negative) Urine Bilirubin Negative (Negative) Urine Urobilinogen 0.2 (0.2-1.0) mg/dL Leukocyte Esterase Rfl Negative (Negative) TORRES/UL Urine RBC 0-2 (0-2) /hpf Urine Opiates Screen Negative (Negative) Urine Methadone Screen Negative (Negative) Ur Barbiturates Screen Negative (Negative) Ur Phencyclidine Scrn Negative (Negative) Ur Amphetamine Screen Negative (Negative) U Benzodiazepines Scrn Negative (Negative) Urine Cocaine Screen Negative (Negative) U Cannabinoids Screen Negative (Negative) <Kyle Armendariz MD - Last Filed: 09/16/24 07:23> Lab Results 09/16/24 Range/Units 07:57 WBC 6.7 (4.8-10.8) K/mm3 RBC 5.15 (4.70-6.10) M/mm3 Hgb 15.4 H (12.4-15.3) g/dL Hct 47.5 H (37.0-46.0) % MCV 92.2 (78.0-102.0) fL MCH 29.9 (27.0-31.0) pg MCHC 32.4 (32-36) g/dL RDW 14.3 (11.6-14.4) % Plt Count 211 (150-420) K/mm3 MPV 9.4 (8.7-11.0) fl Immature Gran % (Auto) 0.3 H (0.0-0.0) % Neut % (Auto) 62.8 (50.0-70.0) % Lymph % (Auto) 24.2 (18.0-42.0) % [place] % (Auto) 9.6 (2.0-11.0) % Eos % (Auto) 2.5 (1.0-6.0) % Baso % (Auto) 0.6 (0.0-1.0) % Lymph # (Auto) 1.63 (1.10-4.50) K/mm3 [place] # (Auto) 0.65 (0.10-0.90) K/mm3 Eos # (Auto) 0.17 (0.02-0.50) K/mm3 Baso # (Auto) 0.04 (0.00-0.10) K/mm3 Abs Immat Gran (auto) 0.02 H (0.00-0.00) K/mm3 Absolute Neuts (auto) 4.23 (1.70-7.20) K/mm3 Absolute Nucleated RBC 0.00 (0.00-0.00) K/mm3 Nucleated RBC % 0.0 (0-0.0) % Sodium 139 (136-145) mmol/L Potassium 3.6 (3.5-5.1) mmol/L Chloride 104 (98-108) mmol/L Carbon Dioxide 29 (21-32) mmol/L Anion Gap 6 (4-12) mmol/L BUN 16 (7-18) mg/dL Creatinine 1.29 (0.70-1.30) mg/dL Estim Creat Clear Calc 48 ml/min Estimated GFR 53 L (59 - ) Glucose 113 H (70-99) mg/dL Calculated Osmolality 290 (285-295) mOsm/kg Lactic Acid 1.6 (0.4-2.0) mmol/L Calcium 8.6 (8.5-10.1) mg/dL Magnesium 1.8 (1.8-2.4) mg/dL Total Bilirubin 0.4 (0.00-1.00) mg/dL AST 19 (15-37) U/L ALT 31 (16-63) U/L Alkaline Phosphatase 102 (46-116) U/L Total Creatine Kinase 41 (39-308) U/L Troponin I 10.2 (0.00-60.4) ng/L NT-Pro-B Natriuret Pep 299 (0-450) pg/mL Total Protein 7.6 (6.4-8.2) g/dL Albumin 3.3 L (3.4-5.0) g/dL TSH 1.97 (0.36-3.74) uIU/mL Urine Color Light yellow (Yellow) Urine Appearance Clear (Clear) Urine pH 6.5 (5.0-8.0) Ur Specific [place] 1.015 (1.010-1.020) Urine Protein Negative (Negative) Urine Glucose (UA) Negative (Negative) Urine Ketones Negative (Negative) Ur Blood (Man) 1+ H (Negative) Urine Nitrate Negative (Negative) Urine Bilirubin Negative (Negative) Urine Urobilinogen 0.2 (0.2-1.0) mg/dL Leukocyte Esterase Rfl Negative (Negative) TORRES/UL Urine RBC 0-2 (0-2) /hpf Urine Opiates Screen Negative (Negative) Urine Methadone Screen Negative (Negative) Ur Barbiturates Screen Negative (Negative) Ur Phencyclidine Scrn Negative (Negative) Ur Amphetamine Screen Negative (Negative) U Benzodiazepines Scrn Negative (Negative) Urine Cocaine Screen Negative (Negative) U Cannabinoids Screen Negative (Negative) <Star Lala MD - Last Filed: 09/16/24 09:41> ECG Data EKG #1: ECG completion date: 09/16/24 <Kyle Armendariz MD - Last Filed: 09/16/24 07:23> ECG completion time: 06:39 <Kyle Armendariz MD - Last Filed: 09/16/24 07:23> Interpretation: normal sinus rhythm. Ventricular ectopic in bigeminal rhythm/ idioventricular ectopic in bigeminal rhythm. Normal axis. Right bundle-branch block pattern. <Kyle Armendariz MD - Last Filed: 09/16/24 07:23> Discharge Plan Discharge Clinical Impression: Mobitz II, Complete heart block <Kyle Armendariz MD - Last Filed: 09/16/24 07:23> Patient Disposition: Acute Care Hospital <Kyle Armendariz MD - Last Filed: 09/16/24 07:23> Condition: Stable <Kyle Armendariz MD - Last Filed: 09/16/24 07:23> Patient Language: Cymro <Kyle Armendariz MD - Last Filed: 09/16/24 07:23> Prescriptions: No Action aspirin [Stephanie Chewable Aspirin] 81 mg tablet,chewable 81 mg PO DAILY amlodipine 5 mg tablet 5 mg PO DAILY escitalopram oxalate 10 mg tablet 10 mg PO DAILY esomeprazole magnesium [Nexium] 40 mg capsule,delayed release(DR/EC) 40 mg PO DAILY pravastatin 10 mg tablet 10 mg PO DAILY metoprolol succinate 25 mg tablet extended release 24 hr 25 mg PO DAILY <Kyle Armendariz MD - Last Filed: 09/16/24 07:23> Follow-up/Referrals: Jake Pond MD [Primary Care Provider] - <Kyle Armendariz MD - Last Filed: 09/16/24 07:23> Time of Disposition: 09:41 <Kyle Armendariz MD - Last Filed: 09/16/24 07:23> 09:41 <Star Lala MD - Last Filed: 09/16/24 09:41> Quality Stroke Date of last known normal: 09/16/24 <Kyle Armendariz MD - Last Filed: 09/16/24 07:23> Stroke Scale Stroke Scale 1: 1a Level of consciousness: alert-0 <Kyle Armendariz MD - Last Filed: 09/16/24 07:23> 1b Level of consciousness questions: answers both correctly-0 <Kyle Armendariz MD - Last Filed: 09/16/24 07:23> 1c Level of consciousness commands: obeys both correctly-0 <Kyle Armendariz MD - Last Filed: 09/16/24 07:23> 2 Best gaze: normal-0 <Kyle Armendariz MD - Last Filed: 09/16/24 07:23> 3 Visual: no visual loss-0 <Kyle Armendariz MD - Last Filed: 09/16/24 07:23> 4 Facial palsy: normal-0 <Kyle Armendariz MD - Last Filed: 09/16/24 07:23> 5a Motor: left arm: no drift-0 <Kyle Armendariz MD - Last Filed: 09/16/24 07:23> 5b Motor: right arm: no drift-0 <Kyle Armendariz MD - Last Filed: 09/16/24 07:23> 6a Motor: left leg: no drift-0 <Kyle Armendariz MD - Last Filed: 09/16/24 07:23> 6b Motor: right leg: no drift-0 <Kyle Armendariz MD - Last Filed: 09/16/24 07:23> 7 Limb ataxia: absent-0 <Kyle Armendariz MD - Last Filed: 09/16/24 07:23> 8 Sensory: normal-0 <Kyle Armendariz MD - Last Filed: 09/16/24 07:23> 9 Best language: no aphasia-0 <Kyle Armendariz MD - Last Filed: 09/16/24 07:23> 10 Dysarthria: normal-0 <Kyle Armendariz MD - Last Filed: 09/16/24 07:23> 11 Extinction and inattention: no abnormality-0 <Kyle Armendariz MD - Last Filed: 09/16/24 07:23> Level:: 0 <Kyle Armendariz MD - Last Filed: 09/16/24 07:23> 0 <Star Lala MD - Last Filed: 09/16/24 09:41>
--- NOTE | 2024-09-16 06:51 | PC.NURSE ---
Call from Lizet at [facility] to speak w/ ara RN and Dr Armendariz about pts reading. Report showed a complete heart block this morning, she will try to send report via email to us for pts record.
--- NOTE | 2024-09-16 07:05 | PC.NURSE ---
Pt resting, monitor showing afib, VSS, report given to Angela RN
--- NOTE | 2024-09-16 07:11 | PC.NURSE ---
Report received from TEODORO Suarez.
[2024-09-16 08:01] LABS: Basophils Absolute Auto 0.04 K/mm3 (0.00-0.10); Basophils Percent Auto 0.6 % (0.0-1.0); Eosinophils Absolute Auto 0.17 K/mm3 (0.02-0.50); Eosinophils Percent Auto 2.5 % (1.0-6.0); Hematocrit 47.5 % (37.0-46.0); Hemoglobin 15.4 g/dL (12.4-15.3); Immature Granulocyte Absolute 0.02 K/mm3 (0.00-0.00); Immature Granulocyte Percent A 0.3 % (0.0-0.0); Lymphocytes Absolute Auto 1.63 K/mm3 (1.10-4.50); Lymphocytes Percent Auto 24.2 % (18.0-42.0); Mean Corpuscular HGB Conc 32.4 g/dL (32-36); Mean Corpuscular Hemoglobin 29.9 pg (27.0-31.0); Mean Corpuscular Volume 92.2 fL (78.0-102.0); Mean Platelet Volume 9.4 fl (8.7-11.0); Monocytes Absolute Auto 0.65 K/mm3 (0.10-0.90); Monocytes Percent Auto 9.6 % (2.0-11.0); Neutrophils Absolute Auto 4.23 K/mm3 (1.70-7.20); Neutrophils Percent Auto 62.8 % (50.0-70.0); Platelet Count Result 211 K/mm3 (150-420); Red Blood Count 5.15 M/mm3 (4.70-6.10); Red Cell Distribution Width 14.3 % (11.6-14.4); White Blood Count 6.7 K/mm3 (4.8-10.8)
[2024-09-16 08:17] LABS: Add Urine Microscopic? YES; Appearance Urine Clear (Clear); Bilirubin Urine Negative (Negative); Blood Urine 1+ (Negative); Color Urine Light Yellow (Yellow); Glucose Urine UA Negative (Negative); Ketones Urine Negative (Negative); Leukocyte Esterase Ur Negative LEU/UL (Negative); Nitrate Urine Negative (Negative); Protein Urine Negative (Negative); Specific Grav Ur 1.015 (1.010-1.020); Urobilinogen Urine 0.2 mg/dL (0.2-1.0); pH Urine 6.5 (5.0-8.0)
[2024-09-16 08:20] LABS: Amphetamine Screen Urine Negative (Negative); Barbiturate Screen Urine Negative (Negative); Benzodiazepines Screen Urine Negative (Negative); Cannabinoid Screen Urine Negative (Negative); Cocaine Screen Urine Negative (Negative); Methadone Screen Urine Negative (Negative); Opiate Screen Urine Negative (Negative); Phencyclidine Screen Urine Negative (Negative)
[2024-09-16 08:25] LABS: Lactic Acid Reflex 1.6 mmol/L (0.4-2.0)
[2024-09-16 08:27] LABS: Alanine Aminotransferase 31 U/L (16-63); Albumin Level 3.3 g/dL (3.4-5.0); Alkaline Phosphatase 102 U/L (46-116); Anion Gap 6 mmol/L (4-12); Aspartate Amino Transferase 19 U/L (15-37); Bilirubin,Total 0.4 mg/dL (0.00-1.00); Blood Urea Nitrogen 16 mg/dL (7-18); Calcium 8.6 mg/dL (8.5-10.1); Carbon Dioxide 29 mmol/L (21-32); Chloride 104 mmol/L (98-108); Creatine Kinase 41 U/L (39-308); Estimated CRCL calculation 48 ml/min; Estimated Glomerular Filt Rate 53; Glucose 113 mg/dL (70-99); Magnesium 1.8 mg/dL (1.8-2.4); NT Pro B Type Natriuretic Pept 299 pg/mL (0-450); Osmolality Calculated 290 mOsm/kg (285-295); Potassium 3.6 mmol/L (3.5-5.1); RBC Urine 0-2 /hpf (0-2); Sodium 139 mmol/L (136-145); Thyroid Stimulating Hormone 1.97 uIU/mL (0.36-3.74); Total Protein 7.6 g/dL (6.4-8.2); Troponin I 10.2 ng/L (0.00-60.4)
== END 2024-09-16 12:35 | disposition short-term general hospital (02) ==
PROVIDERS: Internal Medicine Critical Care Medicine; Emergency Provider Emergency Medicine; PCP Internal Medicine
DX: I44.1 Atrioventricular block, second degree (principal); Z86.73 Personal history of transient ischemic attack (TIA), and cerebral infarction without residual deficits; Z87.891 Personal history of nicotine dependence
CPT/HCPCS: 36415; 71045; 80053; 80307; 81001; 82550; 83605; 83735; 83880; 84443; 84484; 85025; 93005; 99285

== ENCOUNTER 2024-09-21 13:38 | Outpatient (CLI) | payer MEDICARE, SELFPAY ==
--- OUTSIDE RECORDS SUMMARY | 2024-09-21 13:43 | XMS_ITS | Encounter Summary ---
Author Organization [facility] Address [facility]ly [facility] [place] [address] Care Team Providers Care Stripe Marker Name Role Phone Jake Pond MD Primary Care Provider [phone] Teo Reeder MD Unavailable Unavailab le Reason for Visit * Reason Onset Date Comments Appointment Request 09/21/2024 Encounter Details Date Type Department Care Team (Late st Contact Info) Description 09/21/2024 Telephone [facility] [address] [place] [address] Kathia Iglesias MD [address] [facility] [address] [address] Appointment Request Social History Tobacco Use Types Packs/Day Years Used Date Smoking Tobacco: Former [facility] Utilities Answer Date Recorded In the past 12 months has [facility] electric, gas, oil, or water [employer] threatened to shut off services in your home? No 09/16/2024 Humiliation, Afraid, Rape, and Kick questionnair e Answer Date Recorded Within the last year, have y ou been afraid of your partner or ex-partner? No 09/16/2024 Within the last year, have y ou been humiliated or emotionally abused in other ways by your partner or ex-partner? No Within the last year, have y ou been kicked, hit, slapped, or otherwise physically hurt by your partner or ex-partner? No 09/16/2024 Within the last year, have y ou been raped or forced to have any kind of sexual activity by your partner or ex-partner? No 09/16/2024 Overall Financial Resource Strain (CARDIA) Answe r Date Recorded How hard is it for you to pa y for the very basics like food, housing, medical care, and heating? Not very hard 09/16/2024 Hunger Vital Sign Answer Date Recorded Within the past 12 months, y ou worried that your food would run out before you got the money to buy more. Never true 09/17/19 25 Within the past 12 months, t he food you bought just didn't last and you didn't have money to get more. Never true 09/16/2024 PRAPARE - Transportation Answer Date Re corded In the past 12 months, has l ack of transportation kept you from medical appointments or from getting medications? No 08/2024 In the past 12 months, has l ack of transportation kept you from meetings, work, or from getting things needed for daily living? No 09/16/2024 Housing Stability Vital Sign Answer Akshat e Recorded In the last 12 months, was t here a time when you were not able to pay the mortgage or rent on time? No 09/16/2024 In the past 12 months, how m any times have you moved where you were living? 0 09/16/2024 At any time in the past 12 m [facility], were you homeless or living in a jail (including now)? No 09/16/2024 Sex and Gender Information Value Date Recorded [...] hearing Answer Date of Assessment Author Status No 09/16/2024 2:00 PM CDT Samantha Sanches LPN Active * Are you blind or do you have serious difficulty seeing, even when wearing glasses? Answer Date of Assessment Author Status No 09/16/2024 2:00 PM CDT Samantha Sanches LPN Active * Do you have serious difficulty walking or climbing stairs? Answer Date of Assessment Author Status No 09/16/2024 2:00 PM CDT Myron Samanthahawa Leger LPN Active * Do you have difficulty dressing or bathing? Answer Date of Assessment Author Status No 09/16/2024 2:00 PM CDT Myron Samanthahawa Leger LPN Active * Because of a physical, mental, or emotional condition, do you have difficulty doing errands alone such as visiting a doctor's office or shopping? Answer Date of Assessment Author Status No 09/16/2024 2:00 PM CDT Samantha Sanches LPN Active documented as of this encounter Mental Status * Because of a physical, mental, or emotional condition, do you have serious difficulty concentrating, remembering, or making decisions? Answer Entry Date Author Status No 09/16/2024 2:00 PM CDT Samantha Sanches LPN Active documented in this encounter Plan of Treatment Upcoming Encounters Date Type Department Care Team (Late st Contact Info) Description 01/08/2025 3:00 PM CDT Office Visit [facility] [address] [place] [address] Rojelio Sparks PA-C [address] [place] [address] 01/08/2025 3:00 PM CDT Allied Health/Nurse Visit [facility] [address] [place] [address] Rojelio Sparks PA-C [address] [place] [address] documented as of this encounter Visit Diagnoses Not on filedocumented in this encounter Care Teams Stripe Marker Relationship Specialty Start Date End Date Jake Pond MD [address] [place] [address] PCP - General INTERNAL MEDICINE 08/17/16 Teo Reeder MD [address] [place] [address] CARDIOVASCULAR DISEASE 08/17/16 documented as of this encounter
--- OUTSIDE RECORDS SUMMARY | 2024-09-21 13:43 | XMS_ITS | Encounter Summary ---
Author Organization [facility] Address [facility] [place] [address] Care Team Providers Care Industrial Machinery Mechanic Name Role Phone Jake Pond MD Primary Care Provider [phone] Teo Reeder MD Unavailable Unavailab le Encounter Details Date Type Department Care Team (Late st Contact Info) Description 09/18/2024 Hospital Follow-up Call [facility] [address] [place] [address] Vesta Dhillon RN Social History Tobacco Use Types Packs/Day Years Used Date Smoking Tobacco: Former [facility] Utilities Answer Date Recorded In the past 12 months has e electric, gas, oil, or water company threatened to shut off services in your [...] any time in the past 12 m [facility], were you homeless or living in a fci (including now)? No 09/16/2024 Sex and Gender [...] Sanches LPN Active * Do you have difficulty dressing or bathing? Answer Date of Assessment Author Status No 09/16/2024 2:00 PM CDT Samantha Sanches LPN Active * Because of a physical, [...] Description 01/08/2025 3:00 PM CDT Office Visit [facility] [address] [place] [address] Rojelio Sparks PA-C [address] [place] [address] 01/08/2025 3:00 PM CDT Allied Health/Nurse Visit [facility] [address] [place] [address] Rojelio Sparks PA-C [address] [place] [address] documented as of this encounter Visit Diagnoses Not on filedocumented in this encounter Care Teams Industrial Machinery Mechanic Relationship Specialty Start Date End Date Jake Pond MD [address] [place] [address] PCP - General INTERNAL MEDICINE 08/17/16 Teo Reeder MD [address] [place] [address] CARDIOVASCULAR DISEASE 08/17/16 documented as of this encounter
--- OUTSIDE RECORDS SUMMARY | 2024-09-21 13:43 | XMS_ITS | Continuity of Care Document ---
Author Organization [facility] Address [address] [place] [address] Phone Care Team Providers Care Clinical Quality Analyst Name Role Phone Jose A OD, Lela [...] Diagnoses Date Provider Providers Copied on Encounter [facility], [address], [place], [place], [id number], [place] tel:[phone] [address] [place] No Information Jose A OD Lela. [address], [place], [place], [id number], [place]. tel:[phone] Family History Family Member Type Diagnosis Age At Onset No Information Payers Payer name Insurance type Covered green party ID Authoriza tion(s) No Information Social [...]
--- OUTSIDE RECORDS SUMMARY | 2024-09-21 13:43 | XMS_ITS | Encounter Summary ---
Author Organization [facility] Address [address] [place] [address] Care Team Providers Care Director Facilities Maintenance Name Role Phone Jake Pond MD Primary Care Provider [phone] Teo Reeder MD Unavailable Unavailab le Encounter Details Date Type Department Care Team (Late Contact Info) Description 09/07/2016 Abstract [facility] [address] [place] [address] Teo Reeder MD Social History Tobacco Use [...] as of this encounter Plan of Treatment Upcoming Encounters Date Type Department Care Team (Late Contact Info) Description 01/08/2025 3:00 PM CDT Office Visit [facility] [address] [place] [phone] Rojelio Sparks PA-C [address] [place] [phone] 01/08/2025 3:00 PM CDT Allied Health/Nurse Visit [facility] [address] [place] [address] Rojelio Sparks PA-C [address] [place] [address] documented as of this encounter Visit Diagnoses Not on filedocumented in this encounter Care Teams Director Facilities Maintenance Relationship Specialty Start Date End Date Jake Pond MD [address] [place] [address] PCP - General INTERNAL MEDICINE 08/17/16 Teo Reeder MD [address] [place] [address] CARDIOVASCULAR DISEASE 08/17/16 documented as of this encounter
--- OUTSIDE RECORDS SUMMARY | 2024-09-21 13:43 | XMS_ITS | Clinical Summary ---
Author Organization [facility] Address [address] [place] [address] Care Team Providers Care Turbo Generator Oiler Name Role Phone Jake Pond MD Primary Care Provider [phone] Teo Reeder MD Unavailable Unavailab le Allergies No known active allergies Medications esomeprazole (NEXIUM) 40 MG packet Take 40 mg by mouth every morning before breakfast. Active escitalopram 10 MG tablet Take 1 tablet (10 mg total) by mouth daily. Active amlodipine 5 MG tablet Take 1 tablet (5 mg total) by mouth daily. Active clopidogrel (PLAVIX) 75 MG tablet Take 1 tablet (75 mg total) by mouth nightly at bedtime. Active pravastatin (PRAVACHOL) 10 MG tablet Take 1 tablet (10 mg total) by mouth nightly at bedtime. Active metoprolol succinate ER (TOPROL-XL) 25 MG 24 hr tablet Take 1 tablet (25 mg total) by mouth daily for 30 days. 30 tablet 09/19/19 25 025 Active metoprolol succinate 50 MG 24 hr tablet Take 0.5 tablets (25 mg total) by mouth. 025 Discontinued(St op Taking at Discharge) clopidogrel (PLAVIX) 75 MG tablet Take 1 tablet (75 mg total) by mouth daily for 30 days. 30 tablet 08/14/19 25 025 aspirin 81 MG chewable tablet Chew 1 tablet (81 mg total) by mouth daily for 20 days. 20 tablet 08/14/19 25 025 atorvastatin (LIPITOR) 40 MG tablet Take 1 tablet (40 mg total) by mouth nightly at bedtime. 30 tablet 08/14/19 25 025 Discontinued(Er ror) metoprolol succinate ER (TOPROL-XL) 25 MG 24 hr tablet Take 1 tablet (25 mg total) by mouth daily for 30 days. 30 tablet 09/19/19 025 Discontinued Active Problems Problem Noted Date Diagnosed Date S/P placement of leadless cardiac pacemaker 09/2024 Mobitz type 2 second degree heart block 09/17/19 Mobitz type 2 second degree AV block 09/16/2024 TIA (transient ischemic attack) 08/10/2024 Stroke (cerebrum) ([facility]) 08/10/2024 Essential (primary) hypertension 09/08/2016 Hyperlipidemia, mixed 09/08/2016 Bilateral carotid artery disease 09/08/2016 Resolved Problems Problem Noted Date Diagnosed Date Resolved Date Shortness of breath 09/08/2016 09/09/19 17 Encounters Date Type Department Care Team Description 09/21/2024 Telephone [facility] [address] [place] [address] Kathia Iglesias MD Appointment Request 09/18/2024 Hospital Follow-up Call [facility] [address] [place] [address] Vesta Dhillon RN 09/16/2024 1:47 PM CDT - 09/17/2024 11:37 AM CDT Hospital Encounter [facility] [address] [place] [address] Lali Moore MD Parikh, Ankit R, MD Markapuram, Srikanth, MD Discharge Disposition: Home or Self Care (Routine Discharge) 09/16/2024 Travel 09/11/2024 12:00 PM CDT Telephone [facility] [address] [place] [address] Jenn Candelaria NP Holter Monitor 08/31/2024 Telephone [facility] [address] [place] [address] Jenn Candelaria NP Orders 08/10/2024 3:35 PM CDT - 08/12/2024 2:09 PM CDT Hospital Encounter [facility] [address] [place] [address] Jong Davis MD Markapuram, Srikanth, MD Discharge Disposition: Home or Self Care (Routine Discharge) 08/10/2024 Travel from Last 3 Months Social History Tobacco Use Types Packs/Day Years Used Date Smoking Tobacco: Former [facility] Utilities Answer Date Recorded In the past 12 months has th e [employer], gas, oil, or water [employer] threatened to shut off services in your [...] any time in the past 12 m [facility], were you homeless or living in a nursing home (including now)? No 09/16/2024 Sex and Gender [...] Sign Reading Time Taken Comments Blood Pressure 123/82 09/17/2024 11:10 AM CDT Pulse 58 09/17/2024 11:10 AM CDT Temperature 36.3 C (97.4 F) 09/17/2024 11:10 AM CDT Respiratory Rate 15 09/17/2024 11:10 AM CDT Oxygen Saturation 98% 09/17/2024 11:10 AM CDT Inhaled Oxygen Concentration - - Weight 95 kg (209 lb 6.4 oz) 09/16/2024 1:00 PM CDT Height 172.7 cm (5' 7.99 ) 09/16/2024 1:00 PM CD T Body Mass Index 31.85 09/16/2024 1:00 PM CDT Plan of Treatment Upcoming Encounters Date Type Department Care Team (Late st Contact Info) Description 01/08/2025 3:00 PM CDT Office Visit [facility] [address] [place] [phone] Rojelio Sparks PA-C [address] [place] [phone] 01/08/2025 3:00 PM CDT Allied Health/Nurse Visit [facility] [address] [place] [phone] Rojelio Sparks PA-C [address] [place] [address] Health Maintenance Due Date Last Done Comments [...] on patient's age to complete this topic Medical Devices Implanted Type Area Fleet Operations Manager Device Identifier Shelf Expiration Date Model / Serial / Lot Medtronic Micra Av2 Leadless Pacemaker-2024 Implanted:08/2024 by Kathia Iglesias MD (Quantity not on file) Pacemaker [employer]TR[employer] CARDIAC RHYTHM AND HEART FAILURE - DIV M 01/10/2026 [id number] / [id number] / Procedures Procedure Name Priority Date/Time Associated Diagnosis Comments COMPREHENSIVE METABOLIC PANEL Routine 09/17/2024 4:34 AM CDT CBC W/DIFF AUTOMATED Routine 09/17/2024 4:34 AM CDT PARTIAL THROMBOPLASTIN TIME,PTT STAT 09/16/2024 5:57 PM CDT PROTHROMBIN TIME, VENOUS STAT 09/16/2024 5:57 PM CDT COMPREHENSIVE METABOLIC PANEL STAT 09/16/2024 5:57 PM CDT CBC W/DIFF AUTOMATED STAT 09/16/2024 5:57 PM CDT ECG 12-LEAD STAT 09/16/2024 5:18 PM CDT XA INSERTION OF LEADLESS PACEMAKER (MICRA) STAT 09/16/2024 4:40 PM CDT ECG 12-LEAD STAT 09/16/2024 2:31 PM CDT EVENT RECORDER (ECG) UP TO 30 DAYS [...] from Last 3 Months Results * (ABNORMAL) COMPREHENSIVE METABOLIC PANEL (09/17/2024 4:34 AM CDT) Only the most recent of2 resultswithin the time period is included. SODIUM S/P/B 139 136 - 145 MMOL/L 09/17/2024 5:19 AM CDT [facility] POTASSIUM S/P/B 4.2 3.5 - 5.1 MMOL/L 09/17/2024 5:19 AM CDT [facility] Comment:MILD HEMOLYSIS, RESU LT MAY BE AFFECTED. CHLORIDE S/P/B 109 97 - 115 MMOL/L 09/17/2024 5:19 AM CDT [facility] CO2 25.2 21.0 - 32.0 MMOL/L 09/17/2024 5:19 AM CDT [facility] GLUCOSE 113(H) 74 - 106 MG/DL 09/17/2024 5:19 AM CDT [facility] BUN 16 7 - 18 MG/DL 09/17/2024 5:19 AM CDT [facility] CREATININE S/P/B 1.10 0.70 - 1.30 MG/DL 09/17/2024 5:19 AM CDT [facility] CALCIUM S/P/B 9.0 8.5 - 10.1 MG/DL 09/17/2024 5:19 AM CDT [facility] BILIRUBIN TOTAL S/P/B 0.6 0.2 - 1.0 MG/DL 09/17/2024 5:19 AM CDT [facility] ALKALINE PHOSPHATASE S/P/B 82 45 - 115 U/L 09/17/2024 5:19 AM CDT [facility] AST 32 15 - 37 U/L 09/17/2024 5:19 AM CDT [facility] Comment:RESULT QUESTIONABLE DUE TO HEMOLYSIS, CONSIDER RECOLLECTION. ALT 27 16 - 61 U/L 09/17/2024 5:19 AM CDT [facility] TOTAL PROTEIN S/P/B 6.9 6.4 - 8.2 G/DL 09/17/2024 5:19 AM CDT [facility] ALBUMIN S/P/B 3.0(L) 3.4 - 5.0 G/DL 09/17/2024 5:19 AM CDT [facility] ANION GAP 4.8 2.0 - 10.0 MMOL/L 09/17/2024 5:19 AM CDT [facility] OSMOLALITY (CALC) 290 MOSM/KG 025 5:19 AM CDT [facility] Comment:REFERENCE RANGE NOT ESTABLISHED GFR ESTIMATE 67(L) >90 ML/MIN/1. 73 M2 09/17/2024 5:19 AM CDT [facility] GFR NOTES GFR REFERENCE S: 09/17/2024 5:19 AM CDT [facility] Comment: THE ESTIMATED GFR IS CALCULATED [...] ml/min/1.73 m2 G5,KIDNEY FAILURE: <15 ml/min/1.73 m2 09/17/2024 4:34 AM CDT Cameron Dunaway NP LABORATORY Final Result [facility] [address] [place] [address], [id number] * (ABNORMAL) CBC W/DIFF AUTOMATED (09/17/2024 4:34 AM CDT) Only the most recent of3 resultswithin the time period is included. [facility] WBC 7.64 4.00 - 10.80 x10'3/uL 09/17/2024 5:05 AM CDT [facility] RBC 4.83 4.50 - 6.10 x10'6/uL 09/17/2024 5:05 AM CDT [facility] HGB 14.7 13.0 - 18.0 G/DL 09/17/2024 5:05 AM CDT [facility] HCT 44.8 37.0 - 52.0 % 09/17/2024 5:05 AM CDT [facility] MCV 92.8 78.0 - 100.0 FL 09/17/2024 5:05 AM T [facility] MCH 30.4 27.0 - 31.0 PG 09/17/2024 5:05 AM T [facility] MCHC 32.8(L) 33.0 - 36.0 G/DL 09/17/2024 5:05 AM T [facility] RDW 14.2 11.5 - 14.5 % 09/17/2024 5:05 AM T [facility] PLT 200 150 - 350 x10'3/uL 09/17/2024 5:05 AM [facility] MPV 9.7 7.4 - 10.4 FL 09/17/2024 5:05 AM T [facility] DIFFERENTIAL TYPE AUTOMATED DIFFERENTIAL 09/17/2024 5:05 AM T [facility] SEG NEUTROPHILS 68.8 % 5:05 AM CDT [facility] LYMPHOCYTES 16.8 % 09/17/2024 5:05 AM CDT [facility] MONOCYTES 11.1 % 09/17/2024 5:05 AM CDT [facility] EOSINOPHILS 2.4 % 09/17/2024 5:05 AM CDT [facility] BASOPHILS 0.5 % 09/17/2024 5:05 AM CDT [facility] IMMATURE GRANS % 0.4 % 09/18/19 5:05 AM CDT [facility] ABS. NEUTROPHILS 5.26 1.60 - 8.30 x10'3/uL 09/17/2024 5:05 AM CDT [facility] ABS. LYMPHOCYTES 1.28 0.80 - 4.70 x10'3/uL 09/17/2024 5:05 AM CDT [facility] ABS. MONOCYTES 0.85 0.00 - 1.50 x10'3/uL 09/17/2024 5:05 AM CDT [facility] ABS. EOSINOPHILS 0.18 0.00 - 0.40 x10'3/uL 09/17/2024 5:05 AM CDT [facility] ABS. BASOPHILS 0.04 0.00 - 0.20 x10'3/uL 09/17/2024 5:05 AM CDT [facility] ABS. IMMATURE GRANULOCYTES 0.03 0.00 - 0.03 x10'3/uL 09/17/2024 5:05 AM CDT [facility] ABS. NUCLEATED RBC'S 0.00 0.00 - 0.01 x10'3/uL 09/17/2024 5:05 AM CDT [facility] NRBC % 0.0 % 09/17/2024 5:05 AM CDT [facility] 09/17/2024 4:34 AM CDT us Cameron Dunaway NP LABORATORY Final Result [facility] [address] [place] [address], [id number] * (ABNORMAL) PARTIAL THROMBOPLASTIN TIME,PTT (09/16/2024 5:57 PM CDT) [facility] PTT 132.3(HH) 25.1 - 36.5 SEC 09/16/2024 6:37 PM CDT [facility] Comment: CRITICAL RESULT, SPECIMEN DATE, TIME WERE READ BACK BY RN [id number] 09.16.24 09/16/2024 5:57 PM CDT Cameron Dunaway NP LABORATORY Final Result Performing Organization Address [facility] Co de Phone Number [facility] [address] [place] [address], [id number] * PROTIME/INR, VENOUS (PROTHROMBIN TIME) (09/16/2024 5:57 PM CDT) PROTIME 11.8 9.4 - 12.5 SEC 09/16/2024 6:21 PM CDT [facility] INR 1.0 0.8 - 1.1 09/16/2024 6:21 PM CDT [facility] 09/16/2024 5:57 PM CDT Cameron Dunaway NP LABORATORY Final Result Performing Organization Address [facility] de Phone Number [facility] [address] [place] [address], [id number] * ECG 12 lead (09/16/2024 5:18 PM CDT) Only the most recent of2 resultswithin the time period is included. 09/16/2024 5:18 PM CDT Narrative [facility] - 09/17/2024 9:46 AM CDT [address] [address] Test Date: 2024-09-16 Pat Name: LEODAN DUGGAN [facility] Dynamo Tender: Bobo : 1940 Requested By: CAMERON DUNAWAY Order Number: [id number] Reading MD: Luisa Becerra Measurements Intervals [place] Rate: 57 P: -17 IN: 323 QRS: 12 QRSD: 144 T: 1 QT: 442 QTc: 431 Interpretive Statements SINUS BRADYCARDIA WITH SINUS ARRHYTHMIA WITH FIRST DEGREE AV BLOCK RBBB Procedure Note Luisa Becerra MD - 09/17/2024 [facility] [address] [place] [address] Test Date: 2024-09-16 Pat Name: LEODAN DUGGAN Department: 1 Room: [facility] Gender: Male Dynamo Tender: Bobo : 1940 Requested By: CAMERON DUNAWAY Order Number: [id number] Reading MD: Luisa Becerra Measurements Intervals [place] Rate: 57 P: -17 IN: 323 QRS: 12 QRSD: 144 T: 1 QT: 442 QTc: 431 Interpretive Statements SINUS BRADYCARDIA WITH SINUS ARRHYTHMIA WITH FIRST DEGREE AV BLOCK RBBB us Cameron Dunaway TOP FORMER ECG ORDERABLES Final Result [facility] * XA INSERTION OF LEADLESS PACEMAKER (MICRA) (09/16/2024 4:40 PM CDT) Anatomical Region Laterality Modality Cardiac Welding Machine Operator/Tender Narrative 09/16/2024 4:29 PM CDT Kathia Iglesias MD 09/16/2024 4:37 PM MICRA LEADLESS PACEMAKER PROCEDURE REPORT PATIENT NAME: Leodan Duggan . : 1940 PERFORMING STAFF: KATHIA IGLESIAS MD PROCEDURE DATE: 09/16/2024 INDICATIONS: Symptomatic non reversible bradycardia due to Mobitz 2 AV block and intermittent complete heart block Procedure: MICRA AV leadless pacemaker implant, moderate sedation. PROCEDURE: The patient was brought to the procedure in the postabsorptive state. A surgical time out was performed. Intravenous antibiotic prophylaxis was administered assuring that infusion was started within 60 minutes of the procedure. The patient was prepped and draped in the usual fashion. Local anesthesia with instillation of lidocaine solution was used in combination with intravenous sedation. IV Sedation was administered by Raúl Riley RN under my direct supervision. Sedation start time: 1545 Sedation end time: 1621 The patient was continuously monitored for the duration of the sedation. A total of 50 mcg of Fentanyl, 3 mg of Versed and Precedex infusion were administered. A 23F sheath was placed (MDTammie delivery system) via right femoral vein access via ultrasound and xray and serial dilation. The new device was implanted into the RV septum with the MDT delivery system using fluoroscopic guidance and contrast injections. Satisfactory device function was observed. 3 tines were observed to be engaged during pull and hold testing. The delivery system was removed. Two Tobar perclose devices were deployed using the preclose technique in the right femoral access that was used for the 23 Fr Micra delivery sheath. An 0-ethabond was also used in a figure-8 stitch to assist with hemostasis. Estimated blood loss was minimal. The patient left the laboratory in stable condition. No complications occurred. The Performing Staff Physician was present for and performed the full procedure. PLAN: - Bedrest for 4 hours, keep right leg straight - Removal of figure of 8 suture in the morning - He needs to complete his 30 day MCT monitor - Likely discharge on 09/17/24 in the morning - Clinic followup in 3 months Kathia Iglesias MD Physician Cardiac Electrophysiology Kathia Iglesias MD RETAIL PHARMACY TECHNICIAN Final Re sult * (ABNORMAL) BASIC METABOLIC PANEL (08/12/2024 4:23 AM CDT) Only the most recent of2 resultswithin the time period is included. SODIUM S/P/B 136 136 - 145 MMOL/L 08/12/2024 5:00 AM CDT [facility] POTASSIUM S/P/B 3.2(L) 3.5 - 5.1 MMOL/L 08/12/2024 5:00 AM CDT [facility] CHLORIDE S/P/B 106 97 - 115 MMOL/L 08/12/2024 5:00 AM [facility] CO2 21.8 21.0 - 32.0 MMOL/L 08/12/2024 5:00 AM [facility] GLUCOSE 104 74 - 106 MG/DL 08/12/2024 5:00 AM [facility] BUN 11 7 - 18 MG/DL 08/12/2024 5:00 AM [facility] CREATININE S/P/B 1.18 0.70 - 1.30 MG/DL 08/12/2024 5:00 AM [facility] CALCIUM S/P/B 8.1(L) 8.5 - 10.1 MG/DL 08/12/2024 5:00 AM [facility] ANION GAP 8.2 2.0 - 10.0 MMOL/L 08/12/2024 5:00 AM [facility] OSMOLALITY (CALC) 282 MOSM/KG 025 5:00 AM [facility] Comment:REFERENCE RANGE NOT ESTABLISHED GFR ESTIMATE 62(L) >90 ML/MIN/1. 73 M2 08/12/2024 5:00 AM [facility] GFR NOTES GFR REFERENCE S: 08/12/2024 5:00 AM [facility] Comment: THE ESTIMATED GFR IS [...] LABORATORY Final Res ult Performing Organization Address City/[facility]/ZIP Co de Phone Number [facility] [address] [place] [address], [place] [phone] [id number] * (ABNORMAL) POCT glucose (08/11/2024 4:55 PM CDT) Only the most recent of5 resultswithin the time period is included. GLUCOSE POC 110(H) 70 - 109 08/11/2024 5:06 PM CDT [facility] 08/11/2024 4:55 PM CDT us Brad Wang MD POCT ORDERABLES - DEVICE Final Result Performing Organization Address City/[facility] Co de Phone Number [facility] [address] [place] [address], [phone] * USE ECHOCARDIOGRAM (08/11/2024 8:14 AM CDT) Anatomical Region Laterality Modality Cardiac Echocardiogram 08/11/2024 7:40 AM CDT Narrative 08/11/2024 12:57 PM CDT Echocardiography Report Pat.Name: LEODAN DUGGANJaime Pat.ID: [id number] .Date: 08/11/2024 Refer.: [id number] NON-STAFF PROVIDER EWDPNBA EWDPROV Exam Time: 7:40:00 AM Study Type:ECHO WITH CARDIAC DOPPLER COMP Height: 173 cm Weight: 111 kg BSA: 2.23 m2 Age: 7 1940,83Y Sex: M BP: 127/67 Sonogrphr: Vick Barry [facility] Pat. Stat.:Inpatient Room: 822 CPT - 4: 09253 Reason for Study:TIA Procedures: 2D, M-mode, Doppler, [...] Mass 2D Value 159 g LV Mass [id number] Value 71.3 g/m2 Right Ventricle Right Ventricle [...] MD - 08/11/2024 Echocardiography Report Pat.Name: LEODAN DUGGANJaime Pat.ID: [id number] .Date: 08/11/2024 Sangita.: [id number] NON-STAFF PROVIDER EWDPROV EWDPROV Exam Time: 7:40:00 AM Study Type:ECHO WITH CARDIAC DOPPLER COMP Height: 173 cm Weight: 111 kg BSA: 2.23 m2 Age: 7 1940,83Y Sex: M BP: 127/67 Sonogrphr: Vick Barry [facility] Pat. Stat.:Inpatient Room: 822 CPT - 4: 81589 Reason for Study:TIA Procedures: 2D, M-mode, Doppler, [...] Mass 2D Value 159 g LV Mass [id number] Value 71.3 g/m2 Right Ventricle Right Ventricle [...] 12:57 PM Charles Ferro M.D. Ellen Quintana NP ECHO Final Result * (ABNORMAL) HEMOGLOBIN, GLYCATED (08/11/2024 3:01 AM CDT) HGB A1C 6.1(H) <5.7 % 08/11/2024 3:53 AM CDT [facility] ESTIMATED AVG GLUCOSE 128(H) 74 - 114 MG/DL 08/11/2024 3:53 AM CDT [facility] 08/11/2024 3:01 AM CDT Ellen A Gorsek TOP FORMER LABORATORY Final Result [facility] [address] [place] [address], [id number] * (ABNORMAL) LIPID PANEL (08/11/2024 3:01 AM CDT) CHOLESTEROL 120 MG/DL 08/11/2024 4:04 AM CDT [facility] Comment:DESIRABLE: <200 TRIGLYCERIDES 72 MG/DL 08/11/2024 4:04 AM CDT [facility] Comment:<150 NORMAL HDL 33(L) >39 MG/DL 08/11/2024 4:04 AM CDT [facility] LDL (CALCULATED) 73 MG/DL 08/12/19 25 4:04 AM CDT [facility] Comment:<100 OPTIMAL VLDL CALCULATION 14 MG/DL 08/12/19 4:04 AM CDT [facility] Comment:REFERENCE RANGE NOT ESTABLISHED CHOL/HDL RATIO 3.6 08/11/2024 4:04 AM CDT [facility] Comment:REFERENCE RANGE NOT ESTABLISHED LDL/HDL 2.2 08/11/2024 4:04 AM CDT [facility] Comment:REFERENCE RANGE NOT ESTABLISHED NON HDL CHOLESTEROL 87 MG/DL 08/11/2024 4:04 AM CDT [facility] Comment:REFERENCE RANGE NOT ESTABLISHED 08/11/2024 3:01 AM CDT Ellen Quintana TOP FORMER LABORATORY Final Result Performing Organization Address [facility] Co de Phone Number [facility] [address] [place] [address], [phone] * MRI BRAIN WO STROKE FAST PROTOCOL [...] 1:59 AM Narrative 08/11/2024 2:04 AM CDT [address] [address] EXAMINATION: MRI BRAIN WO STROKE FAST PROTOCOL. [...] seen in the major vessels of the [place] of [place]. No trace mucosal thickening in a few ethmoid air cells and a few left mastoid air cells. No other significant paranasal sinus or mastoid air cell disease. Procedure Note Keren Ferrer MD - 08/11/[address] [address] EXAMINATION: MRI BRAIN WO STROKE FAST PROTOCOL. [...] seen in the major vessels of the [place] of [place]. Notrace mucosal thickening in a [...] Final Result from Last [address] [place] [address] [place] [address] [place] [address] [address] [facility] Advance Directives * Full Code (Latest Code Status on File) Date Activated Date Inactivated Comments 09/16/2024 2:40 PM 09/17/2024 1:37 PM * Full Code Date Activated Date Inactivated Comments 08/10/2024 4:40 PM 08/12/2024 4:19 PM Care Teams Turbo Generator Oiler Relationship Specialty Start Date End Date Jake Pond MD [address] [place] [address] PCP - General INTERNAL MEDICINE 08/17/16 Teo Reeder MD [address] [place] [address] CARDIOVASCULAR DISEASE 08/17/16
[2024-09-23 06:08] LABS: Immunoglobulin A 514 mg/dL (70-320); Immunoglobulin G 1061 mg/dL (600-1540); Immunoglobulin M 127 mg/dL (50-300)
[2024-09-23 07:43] LABS: Creatinine, Random Urine 140 mg/dL (20-320); Total Prot/Creat ratio mg/mg 0.157 (0.025-0.148); Total Protein/Creatinine Ratio 157 mg/g creat (25-148)
[2024-09-24 12:02] LABS: Kappa\\Lambda Light Chains 2.33 (0.26-1.65)
== END 2024-09-21 13:39 | disposition home or self-care (01) ==
LOC: CHSLAB 13:41
PROVIDERS: PCP Internal Medicine; Visit Provider Internal Medicine Hematology
DX: D47.2 Monoclonal gammopathy (principal); D75.1 Secondary polycythemia
CPT/HCPCS: 36415; 81270; 82570; 82784; 83883; 84155; 84156; 84165; 84166; 86334

== ENCOUNTER 2025-01-30 09:16 | Outpatient (CLI) | payer MEDICARE, SELFPAY ==
--- OUTSIDE RECORDS SUMMARY | 2024-06-13 08:42 | XMS_ITS | Continuity of Care Document ---
Author Organization [facility] Address [address] [place] [address] Phone Care Team Providers Care Switchboard Manager Name Role Phone Jose A OD, Lela Unavailable Unavailable Allergies, Adverse Reactions, Alerts Substance Reaction Status Criticality No Known Allergies Active No Inform ation Medications Medication Instructions Dosage Effective Dates (start - stop) Status Comments amlodipine besylate 5mg ORAL TABLET - Active esomeprazole magnesium 40 mg capsule,delayed release take 1 capsule by oral route every day 40 MG - Active metoprolol succinate ER 25 mg tablet,extended release 24 hr take 1 tablet by oral route every day 25 MG - Active pravastatin 10 mg tablet take 1 tablet by oral route every day 10 MG - Active escitalopram 10 mg tablet take 1 tablet by oral route every day 10 MG - Active Advance Directives Directive Yes / No Effective Date File Name No Information Encounters Encounter Description Practice Location Reason(s) For Visit Diagnoses Date Provider Providers Copied on Encounter [facility], [address], [place], [place], [id number], [place] tel:[phone] [address] [place] No Information Jose A OD Lela. [address], [place], [place], [id number], [place]. tel:[phone] Family History Family Member Type Diagnosis Age At Onset No Information Payers Payer name Insurance type Covered constitution party ID Authoriza tion(s) No Information Social History Type Description Quantity Date Captured Comments Alcohol Use Details No Caffeine Use Details 2 cups per day Tobacco Use Status No Information Smoking Status No Information Sex Male Chief Complaint And Reason For Visit No Information Reason For Referral Reason For Referral No Information History Of Present Illness Encounter Date Complaint History Of Prese nt Illness No Information Functional Status Date Functional Assessmen t No Information Instructions Date Instruction Additional Infor mation No Information Assessments Type Assessment Date No Information Patient Care Teams Name Effective Dates (start - stop) Status Members No Information
[2025-01-31 10:09] LABS: Immunoglobulin A, Qn 573 mg/dL (61-437); Immunoglobulin G, Qn 1144 mg/dL (603-1613); Immunoglobulin M, Qn 124 mg/dL (15-143)
[2025-01-31 13:09] LABS: Albumin 3.6 g/dL (2.9-4.4); Alpha-1-Globulin 0.3 g/dL (0.0-0.4); Alpha-2-Globulin 1.0 g/dL (0.4-1.0); Gamma Globulin 1.5 g/dL (0.4-1.8)
[2025-01-31 16:08] LABS: Free Lambda Lt Chains, Serum 18.9 mg/L (5.7-26.3); Kappa/Lambda Ratio, Serum 2.23 (0.26-1.65)
== END 2025-01-30 09:17 | disposition home or self-care (01) ==
LOC: CHSLAB 09:18
PROVIDERS: PCP Internal Medicine; Visit Provider Internal Medicine Hematology
DX: D47.2 Monoclonal gammopathy (principal)
CPT/HCPCS: 36415; 82784; 83521; 84155; 84165